=== PATIENT | female | born 1940 | race Caucasian/White ===

== ENCOUNTER → 2016-09-19 | Outpatient (CLI) | payer MEDICARE, OTHER ==
[~2016-09-19] MED LIST: ASPEC81 PO; CALCTAB5 PO; CHOL1CAP57; CLC100X PO; METO25TA3 PO; MULT-506 PO; OXYC1TAB3 PO; PSYL55.43 PO; VISION VITAMIN; WARF2TAB PO; [UNRECOGNIZED DRUG - OTHER] PO
[2016-09-19 16:10] LABS: URINE APPEARANCE CLEAR (CLEAR); URINE BILIRUBIN NEG (NEG); URINE COLOR YELLOW; URINE EPITHELIAL CELL AUTO 0-5 /lpf (0-5); URINE NITRITE NEG (NEG); URINE PH 7.5 (4.5-7.5); UROBILINOGEN NEG (NEG)
[2016-09-19 16:12] LABS: MANUAL MICROSCOPIC REQUIRED? NO; REVIEW REQ? NO
== END | disposition home or self-care (01) ==
LOC: C.LABSPEC 15:51
PROVIDERS: ATTEND Obstetrics & Gynecology
DX: R31.9 Hematuria, unspecified (principal)

== ENCOUNTER → 2016-10-24 | Outpatient (CLI) | payer MEDICARE, OTHER ==
--- NOTE | 2016-10-24 13:32 | MAMMOGRAPHY REPORT ---
BILATERAL DIGITAL SCREENING MAMMOGRAM WITH CAD: 10/24/2016 CLINICAL HISTORY: Routine screening. Patient has no complaints. TECHNIQUE: Bilateral CC and MLO views were obtained. Current study was also evaluated with a Comput er Aided Detection (CAD) system. COMPARISON: Comparison is made to exams dated: 10/21/2015 mammogram, 10/17/2013 mammogram, 10/20/2014 ma mmogram, 10/16/2012 mammogram, 10/10/2011 mammogram, and 10/04/2010 mammogram - [facility] enter. BREAST COMPOSITION: The tissue of both breasts is heterogeneously dense, which may obscure small ma sses. FINDINGS: There are moderate vascular calcifications and a few benign rim calcifications in the iwona sts. No suspicious mass, architectural distortion or cluster of suspicious microcalcifications is s een. IMPRESSION: ACR BI-RADS CATEGORY 1: NEGATIVE There is no mammographic evidence of malignancy. A 1 year screening mammogram is recommended. The p atient will receive written notification of the results. Approximately 10% of breast cancers are not detected with mammography. A negative mammographic repor t should not delay biopsy if a clinically suggestive mass is present. Temi Hernandez M.D. ay/:10/24/2016 12:43:46 Spanish Speaking Nanny: Georgiana PIPER(R)(M), [facility] letter sent: Normal 1/2 BI-RADS Code: ACR BI-RADS Category 1: Negative
== END | disposition home or self-care (01) ==
LOC: C.MAMM 10:08
PROVIDERS: ATTEND Family Medicine
DX: Z12.31 Encounter for screening mammogram for malignant neoplasm of breast (principal)

== ENCOUNTER → 2016-12-07 | Outpatient (CLI) | payer MEDICARE ==
--- NOTE | 2016-12-07 11:21 | DIAGNOSTIC IMAGING REPORT ---
CHEST 2 VIEWS ROUTINE CLINICAL HISTORY: R06.02 Shortness of [id number] dyspnea COMPARISON STUDY: 12/09/2013 FINDINGS: Moderate emphysematous change. Chronic fibrotic change pulmonary apices. Chronic plane posterior gastric angle. IMPRESSION: Chronic and emphysematous change. No acute process. Electronically signed by: Reji Santana M.D. 12/07/2016 11:20 AM Dictated Date/Time: 12/07/2016 11:19 AM
== END | disposition home or self-care (01) ==
LOC: C.RAD1850 10:54
PROVIDERS: ATTEND Internal Medicine Pulmonary Disease
DX: R06.02 Shortness of breath (principal)

== ENCOUNTER → 2017-02-05 | Outpatient (CLI) | payer MEDICARE ==
--- NOTE | 2017-02-03 15:02 | DIAGNOSTIC IMAGING REPORT ---
CERVICAL SPINE 2 VIEWS HISTORY: Pain CHRONIC NECK PAIN COMPARISON: None. FINDINGS: The cervical spine is visualized from C1 through the superior endplate of T1. There is no fracture. No subluxation. Moderate to rather significant degenerative disc change from C4 through T1. Moderate degenerative changes of the posterior and lateral elements. IMPRESSION: Moderate to rather significant degenerative change of the mid to lower cervical spine. No acute process. Electronically signed by: Reji Santana M.D. 02/03/2017 3:01 PM Dictated Date/Time: 02/03/2017 3:00 PM
== END | disposition home or self-care (01) ==
LOC: C.RDSM 16:23
PROVIDERS: ATTEND Orthopaedic Surgery
DX: M54.2 Cervicalgia (principal)

== ENCOUNTER → 2017-02-09 | Outpatient (CLI) | payer MEDICARE ==
--- NOTE | 2017-02-09 13:50 | DIAGNOSTIC IMAGING REPORT ---
MRI OF THE CERVICAL SPINE WITHOUT CONTRAST CLINICAL HISTORY: Cervicalgia. Neck pain and occipital neuralgia. COMPARISON: Cervical spine radiographs February 03, 2017. TECHNIQUE: Utilizing a 1.5 Lynnette magnet and dedicated coil, multiplanar, multiecho imaging of the cervical spine was performed without IV contrast. FINDINGS: There is slight anterolisthesis of C7 on T1 which is likely due to facet arthrosis. There is concavity with moderate loss of height of the inferior endplate of C6 which is chronic. Cervical cord signal and caliber are normal. There is no intracanalicular mass or fluid collection. There is increased T2 signal and diminished T1 signal within the C2 vertebral body and the dens. There is severe degenerative changes of the left C1-C2 articulation. These findings are likely degenerative. C2-C3: The central canal and neural foramen are patent. C3-C4: There is mild disc bulge. The central canal and neural foramen are patent. C4-C5: There is mild disc bulge. The central canal and neural foramen are patent. C5-C6: There is disc space narrowing with disc bulge. There is mild narrowing of the central canal. There is mild narrowing of the left neural foramen. C6-C7: There is disc bulge with a tiny central disc protrusion. There is minimal narrowing of the central canal. The neural foramen are patent. C7-T1: The central canal and neural foramen are patent. IMPRESSION: 1. Severe degenerative changes of the left C1-C2 articulation. Associated marrow signal abnormality within the C2 vertebral body and dens is likely related to this degenerative process. 2. Mild to moderate multilevel degenerative disc disease and facet arthrosis with mild multilevel central canal and neural foraminal stenosis. No significant central canal stenosis. 3. Moderate loss of height with concavity of the inferior plate of C6 which is chronic and could reflect a Schmorl's node or old compression deformity. Electronically signed by: Bakari Epps M.D. 02/09/2017 1:49 PM Dictated Date/Time: 02/09/2017 12:24 PM
== END | disposition home or self-care (01) ==
LOC: C.MRI 11:28
PROVIDERS: ATTEND Orthopaedic Surgery
DX: M54.2 Cervicalgia (principal); M47.812 Spondylosis without myelopathy or radiculopathy, cervical region; M54.81 Occipital neuralgia; R29.890 Loss of height

== ENCOUNTER → 2017-11-01 | Outpatient (CLI) | payer MEDICARE ==
--- NOTE | 2017-11-01 15:23 | MAMMOGRAPHY REPORT ---
BILATERAL DIGITAL SCREENING MAMMOGRAM TOMOSYNTHESIS WITH CAD: 11/01/2017 CLINICAL HISTORY: Routine screening. Patient has no complaints. TECHNIQUE: Breast tomosynthesis in addition to standard 2D mammography was performed. Current study was also evaluated with a Computer Aided Detection (CAD) system. COMPARISON: Comparison is made to exams dated: 10/24/2016 mammogram, 10/21/2015 mammogram, 10/20/2014 mamm ogram, 10/17/2013 mammogram, 10/16/2012 mammogram, and 10/10/2011 mammogram - [facility] er. BREAST COMPOSITION: The tissue of both breasts is heterogeneously dense, which may obscure small mas ses. FINDINGS: There are moderate vascular calcifications in the breasts. No suspicious mass, architectur al distortion or cluster of microcalcifications is seen. IMPRESSION: ACR BI-RADS CATEGORY 1: NEGATIVE There is no mammographic evidence of malignancy. A 1 year screening mammogram is recommended. The pa tient will receive written notification of the results. Approximately 10% of breast cancers are not detected with mammography. A negative mammographic report should not delay biopsy if a clinically suggestive mass is present. Temi Hernandez M.D. ay/:11/01/2017 11:02:35 Rigging Man: Jacqui PIPER(R)(M), [facility] letter sent: Normal 1/2 BI-RADS Code: ACR BI-RADS Category 1: Negative
== END | disposition home or self-care (01) ==
LOC: C.MAMM 10:02
PROVIDERS: ATTEND Family Medicine
DX: Z12.31 Encounter for screening mammogram for malignant neoplasm of breast (principal)

== ENCOUNTER 2021-03-25 09:57 | Inpatient (IN) ==
--- NOTE | 2021-03-25 10:40 | Emergency Department Note ---
Impression & Plan Atrial fibrillation with rapid ventricular response ED Provider Note NAME: Rashaun WEST AGE: 80 SEX: F : 1940 ARRIVES VIA: Walk-In INFORMANT: Patient, ED PROVIDER(S): Thuan Altamirano MD Chief Complaint: Palpitations, weakness HPI: Patient does present with the above complaints which have been chronic in nature but acutely worse over the last 1 week. The patient was recently taken off flecainide and told that she will need to follow-up with dynamo tender due to concern for chronic atrial fibrillation. The patient is anticoagulated on apixaban and does take metoprolol extended release 50 mg. Patient states she has been compliant with his medication. The patient does believe that her s ymptoms began when she was taken off of flecainide. This is at the behest of her lieutenant colonel Dr. Espino. Patient denies any fevers or chills. The patient has had some exertional dyspnea. No lower extremity swelling. The patient is vaccinated for Covid. Patient states she has had generalized weakness but no focal deficits. Patient denies any sensory deficits. Patient denies any cough. ROS: See HPI for pertinent positives and negatives. A total of 10 systems were reviewed and otherwise negative. Past medical history: See below Surgical history: See below Social history: See below Physical Exam: GENERAL: Wearing glasses and a mask. NAD, non-toxic. EYE EXAM: Normal conjunctiva. PERRL, no anisocoria and EOM's grossly intact w/o pain. NECK: Supple, no nuchal rigidity, no adenopathy, non-tender. No signs of meningismus. LUNGS: Clear to auscultation. Normal chest wall mechanics. HEART: Tachycardic, no MRG. ABDOMEN: Abdomen soft, non-tender, normo-active bowel sounds, no masses, no rebound or guarding. BACK: No CVA TTP. SKIN: No rashes and no bruising. UPPER EXTREMITIES: Upper extremities are grossly normal. LOWER EXTREMITIES: Grossly normal, no edema. NEURO EXAM: A&O x3, cranial nerves II-XII grossly intact, normal speech, moves all 4 extremities on command w/o issue. Differential diagnoses: Infection, dehydration, metabolic abnormality, hypo/hyperglycemia, electrolyte disturbance, anemia, hypoxia, cardiac sources, intracerebral event, toxicologic, neurologic, as well as other pathologies. Course: Patient was seen and evaluated the bedside. Full history physical exam was performed. EKG interpreted by me A. fib, rate 105, wide QRS, left bundle branch block pattern, PVCs noted. Imaging Studies: See below Cardiac monitoring: An order was placed for continuous cardiac monitoring. The monitor shows a rate of 115 with tachycardic rhythm. MDM: Patient did have blood work completed along with an EKG. The patient was given IV fluids. The patient has a normal white count H&H and platelet count. Kidney function is unremarkable albeit mild prerenal azotemia. The patient did receive IV fluids. Troponin undetectable. TSH normal along with electrolytes. The patient does show A. fib with RVR. The patient was given IV metoprolol. Chest x-ray did show mild cardiac enlargement with otherwise no acute process. Patient did receive the IV metoprolol and had mild improvement in symptoms but given the patient's requiring 3 IV doses I did speak to the on-call lieutenant colonel Dr. Espino and was amenable for inpatient treatment and will discuss her with electrophysiology. I did speak the on-call hospitalist Dr. Santos the patient was admitted to the medicine service. Critical Care: I have personally spent 55 minutes of critical care time in direct management of this patient. This includes bedside care, interpretation of diagnostic studies, and testing, discussion with consultants, patient, and family members, and other require inpatient management activities. This 55 minutes is in excess of all separately billable procedures. Past Med/Surg History Medical History Abnormal electrocardiogram Abnormal nuclear stress test Atrial fibrillation Bleeding disorder Slight vaginal leakage Decreased exercise tolerance Degenerative disc disease Diastasis of muscle Encounter for routine gynecological examination Femoral hernia Hematuria History of cardioversion has had 2 cardioversion 01/2019 Hypothyroidism Irregular heart beat Kyphoscoliosis LBBB (left bundle branch block) Macular degeneration Mitral valve prolapse Osteoarthritis Osteoporosis Pectus excavatum Raynauds phenomenon Scoliosis Sensorineural hearing loss (SNHL) of right ear with restricted hearing of left ear Shortness of breath Stress incontinence in female SVT (supraventricular tachycardia) Tinnitus, bilateral Unknown whether patient has any health problems Urinary symptom or sign Varicose veins of both lower extremities Surgical History H/O bilateral inguinal hernia repair H/O bladder repair surgery Anterior and posterior colporrhaphy, uterine suspension w/ mesh H/O umbilical hernia repair H/O varicose vein ligation History of cataract surgery BILATERAL History of colonoscopy History of femoral hernia repair History of Fanta fundoplication History of total hip arthroplasty BILATERAL History of total knee replacement LEFT 07/04/13 - MAC #3, ETT #7.0, HiLo Oral, Grade 1 View, Atraumatic DL X 1 Family History Mother Emphysema of lung Osteoporosis Heart disease Father Hearing loss Heart disease Sister Lung cancer Daughter Breast cancer Denies family history of Ovarian cancer No family history of adverse response to anesthesia No family history of bleeding disorder Allergies Colorectal cancer Cancer Hypertension Uterine cancer Stroke Asthma Social History Smoking Status: Never smoker Second Hand Exposure: No; Hx Alcohol Use: Yes Alcohol Intake Frequency Comment: couple times a year Hx Substance Use: No Preferred Language: Bulgarian Communication Ability: Effective Concrete Paver Required: No Beliefs That Will Affect Care: None marital status: Current Living Situation: Spouse Feels Safe at Home: Yes Assistive Devices: Glasses Allergies Allergies Allergy/AdvReac Type Severity Reaction Status Date / Time sesame seed Allergy Severe Anaphylaxis Verified 03/25/21 12:03 No Known Drug Allergies Allergy . Verified 03/25/21 12:03 Home Meds Home Medications Medication Instructions Recorded Confirmed Calcium 600 + D(3) 1 cap PO BID 01/28/19 03/25/21 PreserVision AREDS-2 1 tab PO QAM 01/28/19 03/25/21 levothyroxine [Levo-T] 100 mcg PO QAM 01/28/19 03/25/21 multivitamin 1 tab PO QAM 01/28/19 03/25/21 polyethylene glycol 3350 [Miralax] 17 g PO Q2D 01/28/19 03/25/21 diclofenac sodium 1 % topical gel 1 ea TOPICAL DAILY PRN gm 06/17/19 03/25/21 acetaminophen 500 mg tablet 1,000 mg PO BID tab 02/17/20 03/25/21 omega tumeric 1 cap PO QAM 07/23/20 03/25/21 Previous Rx's Medication Instructions Recorded metoprolol succinate 50 mg 50 mg PO QPM #0 tab 10/25/19 tablet,extended release 24 hr apixaban 5 mg tablet 5 mg PO BID #180 tab 01/07/21 Results & Data (ED) Vital Signs Vital Signs - 24 hr 03/25/21 10:00 03/25/21 10:37 03/25/21 11:00 Temperature 36.8 C Temperature Source Oral Pulse Rate 124 H 106 H 108 H Pulse Rate from SpO2 Sensor 86 Respiratory Rate 20 22 18 Respiratory Effort / Characteristics Non-Labored Respiratory Depth Normal Blood Pressure 140/107 H 137/83 107/77 Blood Pressure Mean 118 101 87 Pulse Oximetry 98 95 Oxygen Delivery Method Room Air Sepsis Recent Fever Within 48 Hours No Sepsis New/Unexplained Change in Mental Status N/A Sepsis Action Taken by Nursing No Action Required 03/25/21 11:17 03/25/21 11:30 03/25/21 11:55 Temperature Temperature Source Pulse Rate 94 H 84 Pulse Rate from SpO2 Sensor 86 110 H Respiratory Rate 19 15 Respiratory Effort / Characteristics Respiratory Depth Blood Pressure 119/80 136/82 Blood Pressure Mean 93 100 Pulse Oximetry 95 96 91 Oxygen Delivery Method Room Air Sepsis Recent Fever Within 48 Hours Sepsis New/Unexplained Change in Mental Status Sepsis Action Taken by Nursing 03/25/21 12:00 03/25/21 12:16 03/25/21 12:30 Temperature Temperature Source Pulse Rate 139 H 113 H 86 Pulse Rate from SpO2 Sensor 114 H 107 H 91 H Respiratory Rate 23 14 15 Respiratory Effort / Characteristics Respiratory Depth Blood Pressure 104/77 113/69 102/78 Blood Pressure Mean 86 83 86 Pulse Oximetry 97 94 97 Oxygen Delivery Method Sepsis Recent Fever Within 48 Hours Sepsis New/Unexplained Change in Mental Status Sepsis Action Taken by Nursing 03/25/21 12:46 03/25/21 12:51 03/25/21 13:00 Temperature Temperature Source Pulse Rate 93 H 104 H 91 H Pulse Rate from SpO2 Sensor 93 H 92 H Respiratory Rate 14 18 Respiratory Effort / Characteristics Respiratory Depth Blood Pressure 142/89 H 142/89 H 130/79 Blood Pressure Mean 106 96 Pulse Oximetry 96 96 Oxygen Delivery Method Sepsis Recent Fever Within 48 Hours Sepsis New/Unexplained Change in Mental Status Sepsis Action Taken by Nursing 03/25/21 13:15 03/25/21 13:30 03/25/21 14:00 Temperature Temperature Source Pulse Rate 113 H 120 H 94 H Pulse Rate from SpO2 Sensor 109 H 82 Respiratory Rate 18 20 29 H Respiratory Effort / Characteristics Respiratory Depth Blood Pressure 126/95 135/94 121/96 Blood Pressure Mean 105 107 104 Pulse Oximetry 92 97 Oxygen Delivery Method Sepsis Recent Fever Within 48 Hours Sepsis New/Unexplained Change in Mental Status Sepsis Action Taken by Custodial Medications Current Medication List: was personally reviewed by me Laboratory Data Attestation: I reviewed the patient's lab results. Result diagrams: 03/25/21 11:10 03/25/21 11:10 Lab Results 03/25/21 03/25/21 03/25/21 Range/Units 11:10 11:10 11:10 WBC 5.06 (4.8-10.8) K/uL RBC 4.71 (4.2-5.4) M/uL Hgb 14.8 (12.0-16.0) g/dL Hct 44.4 (37-47) % MCV 94.3 (80-100) fL MCH 31.4 (25-34) pg MCHC 33.3 (32-36) g/dL RDW Std Deviation 47.6 H (36.4-46.3) fL RDW Coeff of Amy 13.7 (11.5-14.5) % Plt Count 225 (130-400) K/uL MPV 9.5 (7.4-10.4) fL Immature Gran % (Auto) 0.2 % Neut % (Auto) 63.6 % Lymph % (Auto) 24.7 % Tift % (Auto) 9.5 % Eos % (Auto) 1.8 % Baso % (Auto) 0.2 % Neut # (Auto) 3.22 (1.4-6.5) K/uL Lymph # (Auto) 1.25 (1.2-3.4) K/uL Tift # (Auto) 0.48 (0.11-0.59) K/uL Eos # (Auto) 0.09 (0-0.5) K/uL Baso # (Auto) 0.01 (0-0.2) K/uL Immature Gran # (Auto) 0.01 (0.00-0.02) K/uL PT 10.6 (9.0-12.0) Seconds INR 1.0 (0.9-1.1) APTT 28.7 (21.0-31.0) Seconds PTT Ratio 1.1 Sodium 137 (136-145) mmol/L Potassium 4.5 (3.5-5.1) mmol/L Chloride 106 (98-107) mmol/L Carbon Dioxide 26 (21-32) mmol/L Anion Gap 5.0 (3-11) BUN 18 (7-18) mg/dl Creatinine 0.77 (0.6-1.2) mg/dl Est Cr Clr Drug Dosing 53.3 ml/min Est GFR ( Amer) 85.1 ml/min Est GFR (Non-Af Amer) 73.4 ml/min BUN/Creatinine Ratio 22.9 H (10-20) Glucose 84 (70-99) mg/dl Calcium 8.9 (8.5-10.1) mg/dl Phosphorus 3.5 (2.5-4.9) mg/dl Magnesium 2.4 (1.8-2.4) mg/dl Total Bilirubin 0.5 (0.2-1) mg/dl AST 30 (15-37) U/L ALT 45 (12-78) U/L Alkaline Phosphatase 75 (45-117) U/L Troponin I < 0.015 (0-0.045) ng/ml Total Protein 7.1 (6.4-8.2) gm/dl Albumin 3.6 (3.4-5.0) gm/dl Globulin 3.5 (2.5-4.0) gm/dl Albumin/Globulin Ratio 1.0 (0.9-2) TSH 2.640 (0.300-4.500) uIu/ml COVID-19 Eval Order 03/25/21 Range/Units 14:10 WBC (4.8-10.8) K/uL RBC (4.2-5.4) M/uL Hgb (12.0-16.0) g/dL Hct (37-47) % MCV (80-100) fL MCH (25-34) pg MCHC (32-36) g/dL RDW Std Deviation (36.4-46.3) fL RDW Coeff of Amy (11.5-14.5) % Plt Count (130-400) K/uL MPV (7.4-10.4) fL Immature Gran % (Auto) % Neut % (Auto) % Lymph % (Auto) % Tift % (Auto) % Eos % (Auto) % Baso % (Auto) % Neut # (Auto) (1.4-6.5) K/uL Lymph # (Auto) (1.2-3.4) K/uL Tift # (Auto) (0.11-0.59) K/uL Eos # (Auto) (0-0.5) K/uL Baso # (Auto) (0-0.2) K/uL Immature Gran # (Auto) (0.00-0.02) K/uL PT (9.0-12.0) Seconds INR (0.9-1.1) APTT (21.0-31.0) Seconds PTT Ratio Sodium (136-145) mmol/L Potassium (3.5-5.1) mmol/L Chloride (98-107) mmol/L Carbon Dioxide (21-32) mmol/L Anion Gap (3-11) BUN (7-18) mg/dl Creatinine (0.6-1.2) mg/dl Est Cr Clr Drug Dosing ml/min Est GFR ( Amer) ml/min Est GFR (Non-Af Amer) ml/min BUN/Creatinine Ratio (10-20) Glucose (70-99) mg/dl Calcium (8.5-10.1) mg/dl Phosphorus (2.5-4.9) mg/dl Magnesium (1.8-2.4) mg/dl Total Bilirubin (0.2-1) mg/dl AST (15-37) U/L ALT (12-78) U/L Alkaline Phosphatase (45-117) U/L Troponin I (0-0.045) ng/ml Total Protein (6.4-8.2) gm/dl Albumin (3.4-5.0) gm/dl Globulin (2.5-4.0) gm/dl Albumin/Globulin Ratio (0.9-2) TSH (0.300-4.500) uIu/ml COVID-19 Eval Order Covid19 at [facility] Administered Medications Diltiazem HCl (Diltiazem Hcl 30 Mg Tab) 30 mg PO TID JOSE JUAN Stop: 04/24/21 14:29 Last Admin: 03/25/21 15:38 Dose: 30 mg Documented by: [id number] Metoprolol Tartrate (Metoprolol Tartrate 1 Mg/Ml Vial) 5 mg IV Q5M PRN PRN Reason: Tachycardia Stop: 04/24/21 12:20 Last Admin: 03/25/21 13:40 Dose: 5 mg Documented by: [id number] Admin: 03/25/21 12:51 Dose: 5 mg Documented by: [id number] Discontinued Medications Sodium Chloride (Nss) 500 mls @ 999 mls/hr IV .Q31M JOSE JUAN Stop: 03/25/21 11:30 Last Infusion: 03/25/21 12:18 Dose: 0 mls/hr Documented by: [id number] Admin: 03/25/21 11:37 Dose: 999 mls/hr Documented by: [id number] Imaging Data Radiologist's Impression: Chest X-Ray 03/25/21 10:04 XR chest 1V portable HISTORY: 80 years-old Female Chest Pain acute atypical chest pain COMPARISON: 06/30/2020 TECHNIQUE: Portable upright AP view of the chest FINDINGS: Cardiac silhouette is enlarged. No pneumothorax, pleural effusion, airspace consolidation or overt pulmonary edema. Right cardiophrenic angle opacities suggest probable atelectasis/scarring. Degenerative changes of the shoulders and spine with sigmoidal thoracolumbar scoliosis. IMPRESSION: Cardiomegaly without acute process. ACT 112: Negative or not required by law. The above report was generated using voice recognition software. It may contain grammatical, syntax or spelling errors. Electronically signed by: Frederic Walker M.D. 03/25/2021 11:05 AM Discharge Plan Visit Data Chief Complaint: Arrhythmia/Palpitations Stated Complaint: HEART PALPITATIONS,WEAKNESS ED Provider: Thuan Altamirano Discharge Problem: Atrial fibrillation with rapid ventricular response Forms Stand Alone Forms: [facility] [employer] Prescriptions Prescriptions: No Action Eliquis 5 mg tablet 5 mg PO BID Qty: 180 RF: 3 omega tumeric capsule 1 cap PO QAM RF: 0 diclofenac sodium 1 % gel 1 ea topical DAILY PRN (Reason: Pain) RF: 0 metoprolol succinate 50 mg tablet extended release 24 hr 50 mg PO QPM Qty: 0 RF: 0 multivitamin Tablet 1 tab PO QAM RF: 0 levothyroxine [Levo-T] 100 mcg Tablet 100 mcg PO QAM RF: 0 polyethylene glycol 3350 [Miralax] 17 gram/dose Powder 17 g PO Q2D RF: 0 Calcium 600 + D(3) 600 mg calcium- 200 unit Capsule 1 cap PO BID RF: 0 PreserVision AREDS-2 [id number] up-ucfs-[id number]-mg Capsule 1 tab PO QAM RF: 0 acetaminophen [Tylenol Extra Strength] 500 mg tablet 1,000 mg PO BID RF: 0
[2021-03-25] MEDS ORDERED: SODIUM CHLORIDE 0.9% 500 ML IV SCH (11:00)
--- NOTE | 2021-03-25 11:06 | XRay Report ---
XR chest 1V portable HISTORY: 80 years-old Female Chest Pain acute atypical chest pain COMPARISON: 06/30/2020 TECHNIQUE: Portable upright AP view of the chest FINDINGS: Cardiac silhouette is enlarged. No pneumothorax, pleural effusion, airspace consolidation or overt pu lmonary edema. Right cardiophrenic angle opacities suggest probable atelectasis/scarring. Degenerativ e changes of the shoulders and spine with sigmoidal thoracolumbar scoliosis. IMPRESSION: Cardiomegaly without acute process. ACT 112: Negative or not required by law. The above report was generated using voice recognition software. It may contain grammatical, syntax o r spelling errors. Electronically signed by: Frederic Walker M.D. 03/25/2021 11:05 AM
[2021-03-25 11:24] LABS: Basophils # (auto) 0.01 K/uL (0-0.2); Basophils % (auto) 0.2 %; Eosinophils # (auto) 0.09 K/uL (0-0.5); Eosinophils % (auto) 1.8 %; Hematocrit (blood only) 44.4 % (37-47); Hemoglobin 14.8 g/dL (12.0-16.0); Immature Granulocytes # (auto) 0.01 K/uL (0.00-0.02); Immature Granulocytes % (auto) 0.2 %; Lymphocytes # (auto) 1.25 K/uL (1.2-3.4); Lymphocytes % (auto) 24.7 %; Mean Corpuscular Hemoglobin 31.4 pg (25-34); Mean Corpuscular Hgb Conc 33.3 g/dL (32-36); Mean Corpuscular Volume 94.3 fL (80-100); Mean Platelet Volume 9.5 fL (7.4-10.4); Monocytes # (auto) 0.48 K/uL (0.11-0.59); Monocytes % (auto) 9.5 %; Neutrophils # (auto) 3.22 K/uL (1.4-6.5); Neutrophils % (auto) 63.6 %; Platelet Count 225 K/uL (130-400); RDW Coefficient of Variation 13.7 % (11.5-14.5); RDW Standard Deviation 47.6 fL (36.4-46.3); Red Blood Count 4.71 M/uL (4.2-5.4); White Blood Count 5.06 K/uL (4.8-10.8)
[2021-03-25 11:37] LABS: Partial Thromboplastin Ratio 1.1; Partial Thromboplastin Time 28.7 Seconds (21.0-31.0); Prothrombin Time 10.6 Seconds (9.0-12.0)
[2021-03-25 11:41] LABS: Alanine Aminotransferase 45 U/L (12-78); Albumin Level 3.6 gm/dl (3.4-5.0); Aspartate Aminotransferase 30 U/L (15-37); BUN Creatinine Ratio 22.9 (10-20); Blood Urea Nitrogen 18 mg/dl (7-18); Calcium 8.9 mg/dl (8.5-10.1); Carbon Dioxide 26 mmol/L (21-32); Chloride 106 mmol/L (98-107); Creatinine Clr Calc Pharmacy 53.3 ml/min; Est GFR (African American) 85.1 ml/min; Est GFR (Non-African American) 73.4 ml/min; Glucose 84 mg/dl (70-99); Magnesium 2.4 mg/dl (1.8-2.4); Potassium 4.5 mmol/L (3.5-5.1); Sodium 137 mmol/L (136-145)
[2021-03-25 11:52] LABS: Alkaline Phosphatase 75 U/L (45-117); Bilirubin,Total 0.5 mg/dl (0.2-1); Globulin 3.5 gm/dl (2.5-4.0); Phosphorus 3.5 mg/dl (2.5-4.9); Total Protein 7.1 gm/dl (6.4-8.2); Troponin I < 0.015 ng/ml (0-0.045)
[2021-03-25] MEDS: METOPROLOL TARTRATE 1 MG/ML VIAL IV PRN ×2 (12:51→13:40)
[2021-03-25] MEDS ORDERED: dilTIAZem HCL 30 MG TAB PO SCH (14:30)
--- NOTE | 2021-03-25 15:06 | History & Physical Report ---
Date of Service March 25, 2021 Assessment & Plan (1) Atrial flutter: 80 y/o G Hx hypothyroidism, paroxysmal atrial flutter. The pt has been cardioverted multiple times and was recently taking flecainide. She presents with palpitations. Rapid flutter was confirmed on arrival to the ER. Her rate responded partially to IV metoprolol. She denies CP or SOB. She was evaluated in the ER by her ore roaster. Labs are unremarkable. 1) Atrial flutter - The pt is placed on PO Cardizem and BID metoprolol per her ore roaster. She may be placed on amio if there is no short-term improvement. She is anticoagulated with Eliquis. 2) Hypothyroidism - cont Synthroid Full code - Eliquis prophylaxis Total time for this admit including review of labs, meds, imaging, records - discussion with pt and ER attending - 35 min (2) Hypothyroidism: Admission and Anticipated Discharge Date Admission Date: 03/25/21 Anticipated date of discharge: 03/27/21 History of Present Illness Chief Complaint: Palpitations Primary Care Provider: Eran Jordan MD 80 y/o G Hx hypothyroidism, paroxysmal atrial flutter. The pt has been cardioverted multiple times and was recently taking flecainide. She presents with palpitations. Rapid flutter was confirmed on arrival to the ER. Her rate responded partially to IV metoprolol. She denies CP or SOB. She was evaluated in the ER by her ore roaster. Labs are unremarkable. PMH: 1) Paroxysmal atrial flutter 2) Hypothyroidism 3) Osteoarthritis 4) Kyphoscoliosis Surgical: 1) BL TOMMY 2) L TKA 3) Hernia surgery x 5 4) Cataracts Social: Does not drink or smoke Family: Father - COPD Mother - CAD Allergies Allergy/AdvReac Type Severity Reaction Status Date / Time sesame seed Allergy Severe Anaphylaxis Verified 03/25/21 12:03 No Known Drug Allergies Allergy . Verified 03/25/21 12:03 Home Medications Medication Instructions Recorded Confirmed Type Calcium 600 + D(3) 1 cap PO BID 01/28/19 03/25/21 History PreserVision AREDS-2 1 tab PO QAM 01/28/19 03/25/21 History levothyroxine [Levo-T] 100 mcg PO QAM 01/28/19 03/25/21 History multivitamin 1 tab PO QAM 01/28/19 03/25/21 History polyethylene glycol 3350 [Miralax] 17 g PO Q2D 01/28/19 03/25/21 History diclofenac sodium 1 % topical gel 1 ea TOPICAL DAILY PRN gm 06/17/19 03/25/21 History metoprolol succinate 50 mg 50 mg PO QPM #0 tab 10/25/19 03/25/21 Rx tablet,extended release 24 hr acetaminophen 500 mg tablet 1,000 mg PO BID tab 02/17/20 03/25/21 History omega tumeric 1 cap PO QAM 07/23/20 03/25/21 History apixaban 5 mg tablet 5 mg PO BID #180 tab 01/07/21 03/25/21 Rx Past Med/Surg History Medical History Abnormal electrocardiogram Abnormal nuclear stress test Atrial fibrillation Bleeding disorder Slight vaginal leakage Decreased exercise tolerance Degenerative disc disease Diastasis of muscle Encounter for routine gynecological examination Femoral hernia Hematuria History of cardioversion has had 2 cardioversion 01/2019 Hypothyroidism Irregular heart beat Kyphoscoliosis LBBB (left bundle branch block) Macular degeneration Mitral valve prolapse Osteoarthritis Osteoporosis Pectus excavatum Raynauds phenomenon Scoliosis Sensorineural hearing loss (SNHL) of right ear with restricted hearing of left ear Shortness of breath Stress incontinence in female SVT (supraventricular tachycardia) Tinnitus, bilateral Unknown whether patient has any health problems Urinary symptom or sign Varicose veins of both lower extremities Surgical History H/O bilateral inguinal hernia repair H/O bladder repair surgery Anterior and posterior colporrhaphy, uterine suspension w/ mesh H/O umbilical hernia repair H/O varicose vein ligation History of cataract surgery BILATERAL History of colonoscopy History of femoral hernia repair History of Fanta fundoplication History of total hip arthroplasty BILATERAL History of total knee replacement LEFT 07/04/13 - MAC #3, ETT #7.0, HiLo Oral, Grade 1 View, Atraumatic DL X 1 Family History Mother Emphysema of lung Osteoporosis Heart disease Father Hearing loss Heart disease Sister Lung cancer Daughter Breast cancer Denies family history of Ovarian cancer No family history of adverse response to anesthesia No family history of bleeding disorder Allergies Colorectal cancer Cancer Hypertension Uterine cancer Stroke Asthma Social History Smoking Status: Never smoker Second Hand Exposure: No; Hx Alcohol Use: Yes Alcohol Intake Frequency Comment: couple times a year Hx Substance Use: No Preferred Language: Citizen Of [place] Communication Ability: Effective Manager [employer] Required: No Beliefs That Will Affect Care: None marital status: Current Living Situation: Spouse Feels Safe at Home: Yes Assistive Devices: Glasses Review of Systems Review of Systems: Gen: Denies fevers, night sweats, rigors, fatigue, malaise, weight loss/gain ENT: Denies congestion, throat pain, hearing loss Eyes: Denies acute visual changes CV: + Palpitations Pulmonary: Denies SOB, cough, wheezing GI: Denies N/V, diarrhea, constipation Neuro: Denies acute or unilateral weakness, acute gait impairment, headache or acute visual changes Musculoskeletal: Denies joint pain, inflammation Endocrine: Denies polydipsia, polyuria Skin: Denies acute rashes or ulcers Physical Exam Physical Exam: General: AAO x 3, no distress ENT: No erythema or exudates, no thrush Eyes: DEVONTE, EOMI Head and neck: Normocephalic, atraumatic, No JVD, neck is supple. Chest/heart: Nontender, S1,2, faunt, tachy - no murmurs Lungs: CTAB, no wheezing or crackles Abdomen: Nontender, nondistended, BS+ Neuro: AAO x 3, speech is clear, no unilateral weakness or loss of sensation, coordination intact Musculoskeletal: Pronounced kyphosis Skin: No acute rashes or ulcers Extremities: No clubbing, cyanosis, edema Results & Data Results & Data ([facility]) Vital Signs (Past 12 Hours) Vital Signs Temp Pulse Resp BP Pulse Ox 03/25/21 14:00 94 H 29 H 121/96 97 03/25/21 13:30 120 H 20 135/94 03/25/21 13:15 113 H 18 126/95 92 03/25/21 13:00 91 H 18 130/79 96 03/25/21 12:51 104 H 142/89 H 03/25/21 12:46 93 H 14 142/89 H 96 03/25/21 12:30 86 15 102/78 97 03/25/21 12:16 113 H 14 113/69 94 03/25/21 12:00 139 H 23 104/77 97 03/25/21 11:55 84 15 136/82 91 03/25/21 11:30 94 H 19 119/80 96 03/25/21 11:17 95 03/25/21 11:00 108 H 18 107/77 03/25/21 10:37 106 H 22 137/83 95 03/25/21 10:00 98.2 F 124 H 20 140/107 H 98 Code Status & VTE Plan VTE Prophylaxis Plan VTE Prophylaxis will be ordered: Yes PG Care Time/CCT Total # of Minutes Spent Total Time Spent with Patient: Total time spent is greater than 50% in co ordination of care (as documented) at patient's floor/unit and/or counseling patient: Coding Level of Care Code 74257 Initial Inpt Care Lvl 3 Diagnoses Atrial flutter I48.92 Hypothyroidism E03.9
--- NOTE | 2021-03-25 19:11 | Cardiology Consultation ---
Date of Consultation March 25, 2021 Assessment & Plan (1) Atrial fibrillation with rapid ventricular response: (2) Atrial flutter: (3) Fatigue: (4) Dyspnea on exertion: (5) Mitral regurgitation: ASSESSMENT/PLAN: 1. AFib with RVR: Has had issues with paroxysmal atrial fibrillation in the past and has undergone cardioversion x3. She appears to be in atrial fibrillation today while in atrial flutter on 03/15/2021. She has had recurrent arrhythmia despite flecainide therapy, which was therefore discontinued on 03/15/2021. In the emergency department, it was recommended that diltiazem be initiated to attempt rate control strategy. Since then, previous records have been reviewed and rate control strategy was not successful in the past on higher doses of metoprolol succinate and diltiazem. Therefore, will replace diltiazem with amiodarone 400 mg twice daily. She has had bradycardia in sinus rhythm in the past, and therefore metoprolol may need to be discontinued at some point. She states that she has not missed any doses of anticoagulation therapy. Could consider cardioversion after amiodarone load if she does not convert with medication alone. 2. Atrial flutter: Plan as above. 3. Mitral regurgitation: Has been non severe. Being followed as an outpatient. 4. Dyspnea with exertion: Chronic issue. She appears euvolemic. This symptom has not changed even with amish of sinus rhythm in the past as noted in prior cardiology visits. Likely due to documented pulmonary issues with kyphoscoliosis and pectus, limiting chest cage expansion. Certainly elevated heart rates could contribute to dyspnea. 5. Fatigue: Chronic issue. She did not report improvement in this symptom despite amish of sinus rhythm in the past. 6. Disposition: Cardiology will continue to follow. Patient care was discussed with Dr. Santos and Dr. Altamirano. Thank you for allowing me to participate in the care of your patient. Please call for any other questions or concerns. Sincerely, Elvin Espino M.D. History of Present Illness Reason for Consultation: Atrial fibrillation Requesting Physician: Dr. Altamirano Attending Physician: Dr. Santos History of Present Illness Mrs. Clark is a pleasant 80-year-old female with a history significant for paro xysmal atrial fibrillation s/p cardioversion, , atrial flutter anticoagulation, paroxysmal SVT, LBBB, and PACs. She also has emphysema. She has had the following studies/procedures: 1. Nuclear stress 12/15/2011: Negative for ischemia. Fixed small apical defect likely attenuation artifact given normal wall motion. EF 58%. Normal wall motion. 2. Echo 12/10/2013: Normal biventricular systolic function. Trace AI. Trace MR. 3. Holter 12/10/2013: Sinus rhythm. Rare PVCs. Frequent PACs. Three brief runs of asymptomatic SVT, no more than 6 beats in length. 4. Holter 11/02/2015: Sinus rhythm with LBBB and first-degree AV block. Average heart rate 69, ranging 47 to 97. Frequent PACs. Paroxysmal SVT up to 8 beats. Frequent PVCs. Occasional ventricular triplets. Symptoms correlated w ith PVCs. 5. Echo 11/02/2015: Normal LV size, systolic function, wall motion. EF 60-65%. Type 1 diastolic dysfunction. Sclerotic aortic valve. Mitral leaflets appeared thickened with diastolic doming and visually restricted opening but no significant stenosis. Mild, eccentric MR. RVSP 25. 6. Nuclear stress 11/10/2015: Small mild defect involving mid to distal inferoseptal and inferior mejia which could represent ischemia versus artifact due to significant gut artifact. Normal wall motion. EF 73%. 7. PFTs 03/09/2016: Mild obstruction with air trapping and reduced DLCO, consistent with emphysema. 8. Echo 01/22/19: Normal LV size with low-normal systolic function. EF 50-55%. No regional wall motion abnormalities. Septal motion consistent with bundle- branch block. Mild LVH. Moderate left atrial dilation. Severe right atrial dilation. Sclerotic aortic valve. Mild MR. Moderate TR. RVSP 27. 9. DC CV 01/31/2019: Elective for atrial fibrillation. Successfully converted to sinus rhythm. 10. Event monitor May 2019 [place] [facility]: Paroxysmal atrial fibrillation with rapid ventricular response. 11. DC CV 10/18/2019: Elective for AFib. Converted to sinus rhythm. 12. DC CV 02/18/2020: Elective for AFib. Converted to sinus rhythm while on flecainide 100 mg twice daily. 13. Echo 02/21/2020: Normal LV size with low-normal systolic function. EF 50- 55%. Septal motion consistent with bundle-branch block. Mildly dilated RV with normal systolic function. Severe right atrial dilation. Sclerotic aortic valve. Thickened mitral valve with mild MS. Prolapse of posterior mitral valve leaflet with mild to moderate MR. Moderate TR. RVSP 31. 14. Nuclear stress 03/18/2020: Negative for ischemia or infarct. EF 77%. 15. PFT's 09/01/2020: No obstruction. Increased lung volume with air trapping. Normal DLCO. She presented to the emergency department today for palpitations and weakness. According to records, she informed emergency department physician that her symptoms began when flecainide was discontinued. She was last seen in the cardiology office on 03/15/2021 and was noted to be in what appeared to be atrial flutter at that time. She had undergone cardioversion for AFib on 3 separate occasions, the most recent being February of 2020 while on flecainide. Because she was once again in atrial arrhythmia, flecainide was discontinued. She had continued to have chronic and stable dyspnea with exertion and fatigue, which was also expressed at the time of her appointment. These particular symptoms have not improved even while in sinus rhythm however palpitations have and she is expressing more palpitations recently. She was agreeable to follow- up with electrophysiology as an outpatient. She states that she was contacted by the office with appointment dates/times, but she did not schedule the appointment as of yet. She states that she has been having palpitations, shortness of breath, weakness, fatigue, back pain, chest pain, headache, and lightheadedness. She believes that her symptoms have worsened ever since flecainide was discontinued. The chest pain is left lateral but also left-sided and constant. Symptoms are noticeable when at rest, and not exertional. She denies melena, hematochezia, hematuria and states that she has not missed any of her anticoagulation therapy. When asked specific questions about some of her symptoms, she could not recall the details at times. Her agrees that she has short-term memory issues. He recalls that she did feel better after cardioversion in the past, although she has expressed in the office that the symptoms have been constant despite cardioversion and amish of sinus rhythm. It is documented on 02/27/2020 while in sinus rhythm that her dyspnea with exertion and exercise tolerance had not improved although palpitations did following cardioversion and while in sinus rhythm. She also had attempted rate control strategy in the past, but was unsuccessful while on metoprolol succinate and diltiazem. Review of systems: As above. Review of systems otherwise negative/unremarkable. Family history: No known premature CAD. Social history: Denies tobacco, alcohol, or drug abuse. She is retired from the telephone service. She has 5 children. She lives with her . Her hu julio c was sitting at the bedside in the emergency department during our visit. Allergies Allergy/AdvReac Type Severity Reaction Status Date / Time sesame seed Allergy Severe Anaphylaxis Verified 03/25/21 12:03 No Known Drug Allergies Allergy . Verified 03/25/21 12:03 Home Medications Medication Instructions Recorded Confirmed Type Calcium 600 + D(3) 1 cap PO BID 01/28/19 03/25/21 History PreserVision AREDS-2 1 tab PO QAM 01/28/19 03/25/21 History levothyroxine [Levo-T] 100 mcg PO QAM 01/28/19 03/25/21 History multivitamin 1 tab PO QAM 01/28/19 03/25/21 History polyethylene glycol 3350 [Miralax] 17 g PO Q2D 01/28/19 03/25/21 History diclofenac sodium 1 % topical gel 1 ea TOPICAL DAILY PRN gm 06/17/19 03/25/21 History metoprolol succinate 50 mg 50 mg PO QPM #0 tab 10/25/19 03/25/21 Rx tablet,extended release 24 hr acetaminophen 500 mg tablet 1,000 mg PO BID tab 02/17/20 03/25/21 History omega tumeric 1 cap PO QAM 07/23/20 03/25/21 History apixaban 5 mg tablet 5 mg PO BID #180 tab 01/07/21 03/25/21 Rx Patient History Medical History Abnormal electrocardiogram Abnormal nuclear stress test Atrial fibrillation Bleeding disorder Slight vaginal leakage Decreased exercise tolerance Degenerative disc disease Diastasis of muscle Encounter for routine gynecological examination Femoral hernia Hematuria History of cardioversion has had 2 cardioversion 01/2019 Hypothyroidism Irregular heart beat Kyphoscoliosis LBBB (left bundle branch block) Macular degeneration Mitral valve prolapse Osteoarthritis Osteoporosis Pectus excavatum Raynauds phenomenon Scoliosis Sensorineural hearing loss (SNHL) of right ear with restricted hearing of left ear Shortness of breath Stress incontinence in female SVT (supraventricular tachycardia) Tinnitus, bilateral Unknown whether patient has any health problems Urinary symptom or sign Varicose veins of both lower extremities Surgical History H/O bilateral inguinal hernia repair H/O bladder repair surgery Anterior and posterior colporrhaphy, uterine suspension w/ mesh H/O umbilical hernia repair H/O varicose vein ligation History of cataract surgery BILATERAL History of colonoscopy History of femoral hernia repair History of Fanta fundoplication History of total hip arthroplasty BILATERAL History of total knee replacement LEFT 07/04/13 - MAC #3, ETT #7.0, HiLo Oral, Grade 1 View, Atraumatic DL X 1 Family History Mother Emphysema of lung Osteoporosis Heart disease Father Hearing loss Heart disease Sister Lung cancer Daughter Breast cancer Denies family history of Ovarian cancer No family history of adverse response to anesthesia No family history of bleeding disorder Allergies Colorectal cancer Cancer Hypertension Uterine cancer Stroke Asthma Social History Smoking Status: Never smoker Second Hand Exposure: No; Hx Alcohol Use: No Hx Substance Use: No Preferred Language: [place] Communication Ability: Effective Electrical Assemblies Supervisor Required: No Beliefs That Will Affect Care: None marital status: Current Living Situation: Spouse Feels Safe at Home: Yes Assistive Devices: Cane and Glasses Physical Exam Physical Exam: Gen.: No acute distress. Alert. HEENT: Anicteric sclera. Neck: No JVD. No bruit. Cardiac: PMI was nondisplaced. No ventricular heave. Irregularly irregular. Normal S1-S2. 1/6 holosystolic murmur heard best at the apex. No rubs or gallops. Pulmonary: Clear to auscultation bilaterally without wheezes, rales, or rhonchi. Abdomen: Soft, nontender, nondistended, with normoactive bowel sounds. No bruits noted. Extremities: 2+ radial pulses bilaterally. 2+ posterior tibialis pulses bilaterally. No significant pitting edema. No cyanosis. Bilateral lower extremity varicose veins. Psychiatric: Affect appears appropriate. Back: Kyphoscoliosis noted. Results & Data ([facility]) Vital Signs (Past 12 Hours) Vital Signs Temp Pulse Resp BP Pulse Ox 03/25/21 16:00 85 17 138/81 03/25/21 15:30 120 H 21 03/25/21 15:00 103 H 28 H 121/87 96 03/25/21 14:30 108 H 20 139/89 96 03/25/21 14:00 94 H 29 H 121/96 97 03/25/21 13:30 120 H 20 135/94 03/25/21 13:15 113 H 18 126/95 92 03/25/21 13:00 91 H 18 130/79 96 03/25/21 12:51 104 H 142/89 H 03/25/21 12:46 93 H 14 142/89 H 96 03/25/21 12:30 86 15 102/78 97 03/25/21 12:16 113 H 14 113/69 94 03/25/21 12:00 139 H 23 104/77 97 03/25/21 11:55 84 15 136/82 91 03/25/21 11:30 94 H 19 119/80 96 03/25/21 11:17 95 03/25/21 11:00 108 H 18 107/77 03/25/21 10:37 106 H 22 137/83 95 03/25/21 10:00 36.8 C 124 H 20 140/107 H 98 Laboratory Results Laboratory Results - last 24 hr 03/25/21 03/25/21 03/25/21 11:10 11:10 11:10 WBC 5.06 RBC 4.71 Hgb 14.8 Hct 44.4 MCV 94.3 MCH 31.4 MCHC 33.3 RDW Std Deviation 47.6 H RDW Coeff of Amy 13.7 Plt Count 225 MPV 9.5 Immature Gran % (Auto) 0.2 Neut % (Auto) 63.6 Lymph % (Auto) 24.7 Grand % (Auto) 9.5 Eos % (Auto) 1.8 Baso % (Auto) 0.2 Neut # (Auto) 3.22 Lymph # (Auto) 1.25 Grand # (Auto) 0.48 Eos # (Auto) 0.09 Baso # (Auto) 0.01 Immature Gran # (Auto) 0.01 PT 10.6 INR 1.0 APTT 28.7 PTT Ratio 1.1 Sodium 137 Potassium 4.5 Chloride 106 Carbon Dioxide 26 Anion Gap 5.0 BUN 18 Creatinine 0.77 Est Cr Clr Drug Dosing 53.3 Est GFR ( Amer) 85.1 Est GFR (Non-Af Amer) 73.4 BUN/Creatinine Ratio 22.9 H Glucose 84 Calcium 8.9 Phosphorus 3.5 Magnesium 2.4 Total Bilirubin 0.5 AST 30 ALT 45 Alkaline Phosphatase 75 Troponin I < 0.015 Total Protein 7.1 Albumin 3.6 Globulin 3.5 Albumin/Globulin Ratio 1.0 TSH 2.640 COVID-19 Eval Order SARS-CoV-2 (PCR) 03/25/21 03/25/21 14:10 14:10 WBC RBC Hgb Hct MCV MCH MCHC RDW Std Deviation RDW Coeff of Amy Plt Count MPV Immature Gran % (Auto) Neut % (Auto) Lymph % (Auto) Grand % (Auto) Eos % (Auto) Baso % (Auto) Neut # (Auto) Lymph # (Auto) Grand # (Auto) Eos # (Auto) Baso # (Auto) Immature Gran # (Auto) PT INR APTT PTT Ratio Sodium Potassium Chloride Carbon Dioxide Anion Gap BUN Creatinine Est Cr Clr Drug Dosing Est GFR ( Amer) Est GFR (Non-Af Amer) BUN/Creatinine Ratio Glucose Calcium Phosphorus Magnesium Total Bilirubin AST ALT Alkaline Phosphatase Troponin I Total Protein Albumin Globulin Albumin/Globulin Ratio TSH COVID-19 Eval Order Covid19 at [facility] SARS-CoV-2 (PCR) NEGATIVE Diagnostic Findings ECG personally reviewed 03/25/2021 at 10:10 a.m.: Atrial fibrillation RVR 105 beats per minute. LBBB. PVCs versus aberrantly conducted complexes. Chest x-ray 03/25/2021: No acute process per Radiology. Medications Administered Current Inpatient Medications Acetaminophen (Acetaminophen 500 Mg Tab) 1,000 mg PO BID JOSE JUAN Stop: 04/24/21 20:59 Apixaban (Apixaban 5 Mg Tablet) 5 mg PO BID JOSE JUAN Stop: 04/24/21 20:59 Diltiazem HCl (Diltiazem Hcl 30 Mg Tab) 30 mg PO TID JOSE JUAN Stop: 04/24/21 14:29 Last Admin: 03/25/21 15:38 Dose: 30 mg Documented by: Levothyroxine Sodium (Levothyroxine Sodium 100 Mcg Tablet) 100 mcg PO DAILYBB JOSE JUAN Stop: 04/25/21 06:29 Metoprolol Succinate (Metoprolol Succ 50mg Ext Rel Tab) 50 mg PO QPM [facility] Stop: 04/24/21 20:59 Metoprolol Tartrate (Metoprolol Tartrate 1 Mg/Ml Vial) 5 mg IV Q5M PRN PRN Reason: Tachycardia Stop: 04/24/21 12:20 Last Admin: 03/25/21 13:40 Dose: 5 mg Documented by: Metoprolol Tartrate (Metoprolol Tartrate 50 Mg Tab) 50 mg PO BID [facility] Stop: 04/24/21 20:59 PG Care Time/CCT Total # of Minutes Spent Total Time Spent with Patient: Total time spent is greater than 50% in coordination of care (as documented) at patient's floor/unit and/or counseling patient: Coding Level of Care Code 32838 Initial Inpt Care Lvl 3 Diagnoses Atrial fibrillation with rapid ventricular response I48.91 Atrial flutter I48.92 Fatigue R53.83 Dyspnea on exertion R06.09 Mitral regurgitation I34.0
[2021-03-25] MEDS: AMIODARONE 200 MG TAB PO SCH (20:14)
[2021-03-25] MEDS: METOPROLOL TARTRATE 50 MG TAB PO SCH (20:14)
[2021-03-25] MEDS: ACETAMINOPHEN 500 MG TAB PO SCH (20:15)
[2021-03-25] MEDS: APIXABAN 5 MG TABLET PO SCH (20:15)
[2021-03-25] MEDS ORDERED: METOPROLOL SUCC 50MG EXT REL TAB PO SCH (21:00)
--- NOTE | 2021-03-26 05:58 | Electrocardiogram Report ---
Test Reason : Blood Pressure : / mmHG Vent. Rate : 105 BPM Atrial Rate : 100 BPM P-R Int : 000 ms QRS Dur : 126 ms QT Int : 332 ms P-R-T Axes : 000 -74 112 degrees QTc Int : 438 ms Atrial fibrillation with rapid ventricular response with premature ventricular or aberrantly conducte d complexes Left axis deviation Left bundle branch block Abnormal ECG When compared with ECG of 30-JUN-2020 15:01, Atrial fibrillation has replaced Sinus rhythm Vent. rate has increased BY 50 BPM QRS duration has decreased QT has shortened Confirmed by Mich Espino ([id number]) on 03/26/2021 5:58:02 AM Referred By: REFERRED SELF Confirmed By:Mich Espino
[2021-03-26] MEDS ORDERED: LEVOTHYROXINE SODIUM 100 MCG TABLET PO SCH (06:30)
[2021-03-26] MEDS: AMIODARONE 200 MG TAB PO SCH ×2 (07:49→16:35)
[2021-03-26] MEDS: METOPROLOL TARTRATE 50 MG TAB PO SCH (09:45)
[2021-03-26] MEDS: ACETAMINOPHEN 500 MG TAB PO SCH (09:45)
[2021-03-26] MEDS: APIXABAN 5 MG TABLET PO SCH (09:46)
--- NOTE | 2021-03-26 14:59 | Cardiology Progress Note ---
Date of Service March 26, 2021 Assessment & Plan (1) Atrial fibrillation with rapid ventricular response: (2) Atrial flutter: (3) Fatigue: (4) Dyspnea on exertion: (5) Mitral regurgitation: ASSESSMENT/PLAN: 1. AFib with RVR: Has had multiple cardioversions in the past and has had recur rent atrial arrhythmia as while on flecainide. Feels much better on amiodarone. Continue amiodarone load 400 mg p.o. twice daily for a total of 10 days (9 more), and then 200 mg twice daily. Treatment was discussed with her and we discussed potential adverse events with amiodarone. Monitor TSH, transaminase levels while on amiodarone. Continue anticoagulation for stroke risk reduction. If amiodarone does not convert her to sinus rhythm, we discussed cardioversion as an outpatient. We also discussed potentially cardioverting her early next week but she prefers to be discharged with follow-up as an outpatient. Monitor for bradycardia. She was asked to check her heart rate at home at least once daily. Please replace metoprolol succinate at home with metoprolol tartrate 50 mg twice daily so that adjustments can be made based on her heart rate response to amiodarone load. 2. Atrial flutter: Plan as above. 3. Mitral regurgitation: Has been non severe. Being followed as an outpatient. 4. Dyspnea with exertion: Chronic issue. She appears euvolemic. This symptom has not changed even with roman catholic of sinus rhythm in the past as noted in prior cardiology visits. Likely due to documented pulmonary issues with kyphoscoliosis and pectus, limiting chest cage expansion. Certainly elevated heart rates could contribute to dyspnea. Feels well today. 5. Fatigue: Chronic issue. She did not report improvement in this symptom despite roman catholic of sinus rhythm in the past. 6. Disposition: She would like to be discharged home. Follow-up appointment has been scheduled in the cardiology office next week with me. Will check ECG at that time. She was asked to contact the office with any questions or concerns in the meantime. Patient care communicated with Dr. Barrera of the primary hospitalist service. Admission and Anticipated Discharge Date Admission Date: March 25, 2021 Subjective She feels much better today. She has not had any further palpitations. She denies shortness of breath, syncope, near-syncope, chest pain, edema, or blee ding. She has ambulated throughout her room but not yet in the hallway. She was asked to ambulate the hallway to make sure that she feels well because she would like to go home today. Her son was present at the bedside. Review of systems: As above. Physical Exam Physical Exam: Gen.: No acute distress. Alert. HEENT: Anicteric sclera. Neck: No JVD. Cardiac: Irregularly irregular. Normal heart rate. Normal S1-S2. 1/6 holosystolic murmur heard best at the apex. No rubs or gallops. Pulmonary: Clear to auscultation bilaterally without wheezes, rales, or rhonchi. Abdomen: Soft, nontender, nondistended, with normoactive bowel sounds. No bruits noted. Extremities: 2+ radial pulses bilaterally. 2+ posterior tibialis pulses bilaterally. No significant pitting edema. No cyanosis. Bilateral lower extremity varicose veins. Psychiatric: Affect appears appropriate. Back: Kyphoscoliosis noted. Results & Data ([facility]) Vital Signs (Past 12 Hours) Vital Signs Temp Pulse Pulse Resp BP BP Pulse Ox 03/26/21 11:48 36.8 C 78 20 124/98 98 03/26/21 10:40 126 H 03/26/21 07:49 108/81 03/26/21 07:11 36.4 C L 100 H 17 83/49 L 98 03/26/21 03:32 36.5 C 97 H 17 122/78 97 Laboratory Results Laboratory Results - last 24 hr 03/25/21 03/25/21 14:10 14:10 COVID-19 Eval Order Covid19 at [facility] SARS-CoV-2 (PCR) NEGATIVE Diagnostic Findings Telemetry personally reviewed: Atrial fibrillation with improved heart rate. No significant pause. ECG personally reviewed 03/26/2021: Atrial fibrillation/flutter 84 beats per minute. LBBB. Medications Administered Current Inpatient Medications Acetaminophen (Acetaminophen 500 Mg Tab) 1,000 mg PO BID [facility] Stop: 04/24/21 20:59 Last Admin: 03/26/21 09:45 Dose: 1,000 mg Documented by: Amiodarone HCl (Amiodarone 200 Mg Tab) 400 mg PO BIDM [facility] Stop: 04/24/21 19:34 Last Admin: 03/26/21 07:49 Dose: 400 mg Documented by: Apixaban (Apixaban 5 Mg Tablet) 5 mg PO BID [facility] Stop: 04/24/21 20:59 Last Admin: 03/26/21 09:46 Dose: 5 mg Documented by: Levothyroxine Sodium (Levothyroxine Sodium 100 Mcg Tablet) 100 mcg PO DAILYBB [facility] Stop: 04/25/21 06:29 Last Admin: 03/26/21 06:12 Dose: 100 mcg Documented by: Metoprolol Tartrate (Metoprolol Tartrate 50 Mg Tab) 50 mg PO BID [facility] Stop: 04/24/21 20:59 Last Admin: 03/26/21 09:45 Dose: 50 mg Documented by: PG Care Time/CCT Total # of Minutes Spent Total Time Spent with Patient: Total time spent is greater than 50% in coordination of care (as documented) at patient's floor/unit and/or counseling patient: Coding Level of Care Code 25879 Subseq Hosp Care Lvl 3 Diagnoses Atrial fibrillation with rapid ventricular response I48.91 Atrial flutter I48.92 Fatigue R53.83 Dyspnea on exertion R06.09 Mitral regurgitation I34.0
--- NOTE | 2021-03-26 16:39 | Discharge Summary ---
Date of Service March 26, 2021 Admission HPI Per Admitting Provider 80 y/o G Hx hypothyroidism, paroxysmal atrial flutter. The pt has been cardioverted multiple times and was recently taking flecainide. She presents with palpitations. Rapid flutter was confirmed on arrival to the ER. Her rate responded partially to IV metoprolol. She denies CP or SOB. 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 Labs are unremarkable. PMH: 1) Paroxysmal atrial flutter 2) Hypothyroidism 3) Osteoarthritis 4) Kyphoscoliosis Surgical: 1) BL TOMMY 2) L TKA 3) Hernia surgery x 5 4) Cataracts Social: Does not drink or smoke Family: Father - COPD Mother - CAD Admission Exam Per Admitting Provider General: AAO x 3, no distress ENT: No erythema or exudates, no thrush Eyes: DEVONTE, EOMI Head and neck: Normocephalic, atraumatic, No JVD, neck is supple. Chest/heart: Nontender, S1,2, faunt, tachy - no murmurs Lungs: CTAB, no wheezing or crackles Abdomen: Nontender, nondistended, BS+ Neuro: AAO x 3, speech is clear, no unilateral weakness or loss of sensation, coordination intact Musculoskeletal: Pronounced kyphosis Skin: No acute rashes or ulcers Extremities: No clubbing, cyanosis, edema Principal Diagnosis Atrial fibrillation with rapid ventricular rate Discharge Exam Constitutional WD/WN, vitals as above Eyes + anicteric sclerae; normal pupil size Respiratory normal respiratory effort, lungs clear to auscultation Cardiovascular Rate/Rhythm: regular rate and + irregularly irregular Heart Sounds: + murmur (systolic @ apex) Gastrointestinal (Abdomen) normal bowel sounds, soft, nontender, no hepatosplenomegaly Skin no rashes, warm and dry Psychiatric A+Ox3, euthymic affect Discharge Data Allergies Allergy/AdvReac Type Severity Reaction Status Date / Time sesame seed Allergy Severe Anaphylaxis Verified 04/01/21 09:20 No Known Drug Allergies Allergy . Verified 04/01/21 09:20 Consultations 03/25/21 14:10 ED Decision to Admit Stat 03/25/21 16:38 Consult Cardiology Stat 03/25/21 18:32 Consult Cardiology Routine Hospital Course (1) Atrial flutter: Kavya Clark is a 80 year old female observed at [facility] from March 25-2020 due to atrial fibrillation with rapid ventricular rate. On consultation with cardiology recommended starting amiodarone for this to help with rhythm control. This will start at 400 mg twice daily for 9 days then 200 mg twice a day with further dosing to be arranged by cardiology next week. Recommend taking metoprolol tartrate instead of her usual succinate as prescribed below. Please continue on your anticoagulation with Eliquis. Cardiology will arrange follow-up next week to arrange possible cardioversion if you do not convert to a normal rhythm with the amiodarone. (2) Hypothyroidism: Total Time Total Time Spent Total Time Spent (In Minutes): 45 Discharge Plan Discharge Items Patient Disposition: Home - Self-Care Reason For Visit: RAPID AFIB Discharge Diagnosis: Atrial fibrillation with rapid ventricular rate Activity: Resume your previous activity Non-emergency contact: Waiter/Waitress Dining Car Call non-emergency contact if: you have any medication questions and your symptoms worsen Follow-up/Referrals: Mich Espino MD [Physician] - (Follow-up to be arranged next week by cardiology) Eran Jordan MD [Primary Care Provider] - Diet: Heart Healthy Addtl Attending Provider Instructions: You are observed at [facility] from March 252020 due to atrial fibrillation with rapid ventricular rate. On consultation with cardiology recommended starting amiodarone for this to help with rhythm control. This will start at 400 mg twice daily for 9 days then 200 mg twice a day with further dosing to be arranged by cardiology next week. Recommend taking metoprolol tartrate instead of your usual succinate as prescribed below (Nb: metoprolol tartrate is taken twice a day). Please continue on your anticoagulation with Eliquis. Cardiology will arrange follow-up next week to arrange possible cardioversion if you do not convert to a normal rhythm with the amiodarone. Please call the number above if you do not hear anything by Monday. Pending Studies at Discharge: No Stand-Alone Forms: My [facility], Smoking Cessation Medications and DC Order Prescriptions: New metoprolol tartrate 50 mg Tablet 50 mg PO BID Qty: 60 RF: 0 amiodarone 200 mg tablet See Rx Instructions .ROUTE .COMPLEX Qty: 78 RF: 0 Continued Eliquis 5 mg tablet 5 mg PO BID Qty: 180 RF: 3 omega tumeric capsule 1 cap PO QAM RF: 0 diclofenac sodium 1 % gel 1 ea topical DAILY PRN (Reason: Pain) RF: 0 multivitamin Tablet 1 tab PO QAM RF: 0 levothyroxine [Levo-T] 100 mcg Tablet 100 mcg PO QAM RF: 0 polyethylene glycol 3350 [Miralax] 17 gram/dose Powder 17 g PO Q2D RF: 0 Calcium 600 + D(3) 600 mg calcium- 200 unit Capsule 1 cap PO BID RF: 0 PreserVision AREDS-2 [id number] Capsule 1 tab PO QAM RF: 0 acetaminophen [Tylenol Extra Strength] 500 mg tablet 1,000 mg PO BID RF: 0 Discontinued metoprolol succinate 50 mg tablet extended release 24 hr 50 mg PO QPM Qty: 0 RF: 0 Discharge Orders: Discharge Order (Routine); Ordered 03/26/21 Ordered By: Kota Barrera Admission Data Admit Date/Time: 03/25/21 14:48 Attending Provider: Kota Barrera Admit Provider: Nima Santos Primary Care Provider: Eran Jordan Other Providers: Mich Espino Other Interventions: Discharge Summary Assessment (RN) Last Done: 03/26/21 16:48 Coding Level of Care Code D/C DAY MANAGEMENT >30 MINS Diagnoses Atrial flutter I48.92 Hypothyroidism E03.9
--- NOTE | 2021-03-27 06:26 | Electrocardiogram Report ---
Test Reason : Blood Pressure : / mmHG Vent. Rate : 084 BPM Atrial Rate : 326 BPM P-R Int : 000 ms QRS Dur : 134 ms QT Int : 428 ms P-R-T Axes : 000 -68 138 degrees QTc Int : 505 ms Atrial fibrillation / Atrial flutter Left axis deviation Left bundle branch block Abnormal ECG When compared with ECG of 25-MAR-2021 10:10, No significant change Confirmed by Mich Espino ([id number]) on 03/27/2021 6:25:52 AM Referred By: REFERRED SELF Confirmed By:Mich Espino
== END 2021-03-26 17:35 | disposition home or self-care (01) | DRG 310 ==
LOC: ED 09:57 → SUATTDRO 14:48 → 2S 14:48
DX: R06.09 Other forms of dyspnea; E03.9 Hypothyroidism, unspecified; Z98.890 Other specified postprocedural states; Z79.899 Other long term (current) drug therapy; Z79.890 Hormone replacement therapy; Z79.01 Long term (current) use of anticoagulants; Z79.1 Long term (current) use of non-steroidal anti-inflammatories (NSAID); R53.82 Chronic fatigue, unspecified; I34.0 Nonrheumatic mitral (valve) insufficiency; Z91.018 Allergy to other foods; Z82.49 Family history of ischemic heart disease and other diseases of the circulatory system; I48.92 Unspecified atrial flutter; I48.0 Paroxysmal atrial fibrillation

== ENCOUNTER 2024-07-17 19:42 | Inpatient (IN) ==
[2024-07-17] MEDS: dilTIAZem HCl 5 MG/ML 5 ML VIAL IV STA ×2 (19:55→20:00)
[2024-07-17] MEDS: dilTIAZem HCl 5 MG/ML 5 ML VIAL IV ONE (20:07)
[2024-07-17 20:16] LABS: iSTAT Creatinine 1.1 mg/dl (0.6-1.3); iSTAT Hemoglobin 15.6 g/dl (12.0-16.0); iSTAT Ionized Calcium 1.12 mmol/l (1.12-1.32); iSTAT Potassium 4.3 mmol/L (3.3-5.0)
[2024-07-17 20:17] LABS: Basophils # (auto) 0.06 K/uL (0.00-0.20); Basophils % (auto) 0.9 %; Eosinophils # (auto) 0.09 K/uL (0.00-0.50); Eosinophils % (auto) 1.3 %; Hematocrit (blood only) 45.7 % (37.0-47.0); Hemoglobin 15.2 g/dl (12.0-16.0); Immature Granulocytes # (auto) 0.04 K/uL (0.01-0.20); Immature Granulocytes % (auto) 0.6 %; Lymphocytes # (auto) 2.12 K/uL (1.20-3.40); Lymphocytes % (auto) 30.9 %; Mean Corpuscular Hemoglobin 31.5 pg (25.0-34.0); Mean Corpuscular Hgb Conc 33.3 g/dL (32.0-36.0); Mean Corpuscular Volume 94.6 fL (80.0-100.0); Monocytes # (auto) 0.35 K/uL (0.11-0.59); Monocytes % (auto) 5.1 %; Neutrophils # (auto) 4.21 K/uL (1.40-6.50); Neutrophils % (auto) 61.2 %; Platelet Count 208 K/uL (130-400); RDW Coefficient of Variation 13.9 % (11.5-14.5); RDW Standard Deviation 48.6 fL (36.4-46.3); Red Blood Count 4.83 M/uL (4.20-5.40); White Blood Count 6.87 K/ul (4.8-10.8)
[2024-07-17 20:32] LABS: Appearance Urine Clear (Clear); Bacteria Urine Automated None Seen (None Seen); Bilirubin Urine Negative (Negative); Blood Urine Negative (Negative); Cast Urine Automated 0-2 /lpf (0-2); Color Urine Yellow; Glucose Urine UA Negative (Negative); Ketones Urine Negative (Negative); Leukocyte Esterase Urine 2+ (Negative); Nitrite Urine Negative (Negative); Protein Urine Negative (Negative); RBC Urine Automated 0-2 /hpf (0-2); Specific Gravity Urine 1.018 (1.000-1.030); Urobilinogen Urine Negative (Negative); WBC Urine Automated 0-5 /hpf (0-5); pH Urine 5.5 (4.5-7.5)
[2024-07-17 20:35] LABS: BUN Creatinine Ratio 21.8 (10-20); Magnesium 1.9 mg/dl (1.7-2.4); Potassium 4.3 mmol/L (3.5-5.1)
[2024-07-17 20:43] LABS: Partial Thromboplastin Time 28 Seconds (21-31); Prothrombin Time 11.1 Seconds (9.0-12.0)
--- NOTE | 2024-07-17 21:45 | History & Physical Report ---
Date of Service July 17, 2024 Assessment & Plan (1) Atrial flutter with rapid ventricular response: Plan: Patient presented in atrial flutter with RVR, rate of 136 bpm, symptomatic with shortness of breath. Given Diltiazem 25mg IV with improvement in heart rate - presently 76bpm. Patient is anticoagulated on Apixaban and reports being compliant with her medications. SOB earlier today associated with patient's elevated heart rate. Otherwise she denies chest pain, palpitations, dizziness, syncope or signs/symptoms of heart failure. Recent outpatient patient monitor revealed 100% atrial flutter. Patient is scheduled to see Cardiology at [facility] on 08/02/24 -Observation to medical with telemetry -Continue Apixaban 2.5mg po BID - PM dose ordered for the ER -Continue metoprolol 25mg po BID - PM dose ordered for the ER. Plan Chronic Medical Conditions: Hypothyroidism - patient on Synthroid 100mcg po daily -Check TSH with AM labs -Continue Synthroid Dementia - patient is able to answer questions but is slow to respond and does not recall a lot of details of events prior to arrival -Delirium prevention strategies -Continue Namenda F/E/N - Saline lock. Electrolytes WNL. Regular diet as tolerated PPx - On Apixaban for AF Code - Full per discussion with patient Dispo - Observation to medical with telemetry History of Present Illness Chief Complaint: shortness of breath Primary Care Provider: Joaquin Jordan MD Kavya Clark is an 84yo female with history of atrial fibrillation, hypothyroidism and dementia presenting with shortness of breath. History is provided by patient as well as patient's at bedside. Patient reports that she has not been feeling well for the last several days. Today she became more short of breath. and other family member at bedside reported that patient was "gasping for air" at one point. They checked her heart rate and found it to be elevated at 140bpm. Patient denies chest pain or palpitations. No dizziness, syncope or presyncope. No edema or orthopnea. No cough, fever or chills. Upon arrival to the ER patient found to be in atrial flutter with HR of 136. She was administered Cardizem 25mg IV with improvement in heart rate. Cardizem drip was ordered but was not initiated. Patient follows with Cardiology locally as well as at [facility]. She has a longstanding history of atrial fibrillation. She has had multiple cardioversions in the past (last 12/15/22). She had a pulmonary vein isolation and caval tricuspid isthmus ablation performed on 03/02/23. She did have some transient heart block following this procedure which resolved. She most recently had a Holter monitor for two weeks - results viewed tonight with assistance of resident geographic information systems manager. Study showed persistent atrial flutter 100% burden with variable block. Occasional rapid rates with 2:1 conduction and 0.2% PVCs. ER Course: Diltiazem 10mg IV + 15mg IV Allergies Allergy/AdvReac Type Severity Reaction Status Date / Time sesame seed Allergy Severe Anaphylaxis Verified 01/19/24 11:26 Home Medications Medication Instructions Recorded Confirmed Type calcium 600 mg (as 1 cap PO QAM 01/28/19 03/11/24 History carbonate)-vitamin D3 5 mcg (200 unit) capsule (Calcium 600 + D(3)) multivitamin 1 tab PO QAM 01/28/19 03/11/24 History acetaminophen 500 mg tablet 1,000 mg PO UD PRN Pain 02/17/20 03/11/24 History (Tylenol Extra Strength) Prevagen 1 dose PO QAM 11/17/22 03/11/24 History levothyroxine 100 mcg tablet 100 mcg PO DAILY 06/12/23 07/17/24 History safety needles 25 gauge x 1" (BD #15 ea 11/02/23 03/11/24 Rx Eclipse) apixaban 2.5 mg tablet (Eliquis) 2.5 mg PO BID 03/11/24 07/17/24 History cyanocobalamin (vitamin B-12) 1,000 mcg subcut .COMPLEX 90 days 04/05/24 07/17/24 Rx 1,000 mcg/mL injection solution #10 mL memantine 5 mg tablet 5 mg PO BID 90 days #180 tabs 06/24/24 07/17/24 Rx metoprolol succinate 25 mg 25 mg PO BID 07/17/24 07/17/24 History tablet,extended release 24 hr Past Med/Surg History Problem List (Updated 07/17/24 @ 22:07 by David Simons MD) Atrial flutter with rapid ventricular response (Acute) Dementia Vitamin B12 deficiency Peripheral vascular disease Memory loss On anticoagulant therapy Mitral regurgitation Dyspnea on exertion Encounter for pre-operative examination Decreased exercise tolerance (Acute) Abnormal nuclear stress test (Acute) Abnormal electrocardiogram (Acute) Pectus excavatum Fatigue Vaginal bleeding Urinary symptom or sign Microscopic hematuria Urethral caruncle Atrial flutter Paroxysmal atrial fibrillation Atrial fibrillation with rapid ventricular response (Acute) Persistent atrial fibrillation On amiodarone therapy Fatigue Hypothyroidism Chest pain Elevated blood pressure reading without diagnosis of hypertension Atrial flutter with rapid ventricular response Medical History PVT (paroxysmal ventricular tachycardia) Tricuspid regurgitation Non severe per cardio Kyphoscoliosis Sensorineural hearing loss (SNHL) of right ear with restricted hearing of left ear Tinnitus, bilateral Osteoporosis Raynauds phenomenon Shortness of breath CHAPMAN per cardio records- chronic- pt euvolemic at 04/01/21 cardio visit "Likely due to documented pulmonary issues, with kyphoscoliosis and pectus, limiting chest cage expansion." PT REPORTS SOB IN HER HX, NO OTHER KNOWN LUNG PROBLEMS OTHER THAN EMPHYSEMA. SOB USUALLY NOT A PROBLEM OTHER THAN WITH THE CURRENT AFIB RHYTHM...REASON FOR UPCOMING PROCEDURE LBBB (left bundle branch block) Macular degeneration Mitral valve prolapse with MR- remains non severe per cardio records Emphysema lung Degenerative disc disease Hypothyroidism SVT (supraventricular tachycardia) HX SVT Atrial fibrillation DX LONG TIME AGO WITH AFIB/HX CARDIOVERSIONS on Eliquis; [facility] cardio Surgical History History of cardioversion x6, most recent 11/2022, [facility] H/O varicose vein ligation History of total knee replacement LEFT 07/04/13 - MAC #3, ETT #7.0, HiLo Oral, Grade 1 View, Atraumatic DL X 1 History of total hip arthroplasty BILATERAL H/O bladder repair surgery Anterior and posterior colporrhaphy, uterine suspension w/ mesh History of Fanta fundoplication H/O bilateral inguinal hernia repair H/O umbilical hernia repair History of colonoscopy History of cataract surgery BILATERAL Family History Mother Emphysema of lung Osteoporosis Heart disease Father Hearing loss Heart disease Sister Lung cancer Daughter Breast cancer Denies family history of Ovarian cancer No family history of adverse response to anesthesia No family history of bleeding disorder Allergies Colorectal cancer Cancer Hypertension Uterine cancer Stroke Asthma Social History Smoking Status: Never smoker Second Hand Exposure: Yes (hx as child); Do You Dip or Chew Tobacco: No; Hx Alcohol Use: Yes Alcohol Intake Frequency Comment: couple times a year Hx Substance Use: No Preferred Language: Somali Communication Ability: Effective Ticket Manager Required: No Beliefs That Will Affect Care: None marital status: Current Living Situation: Spouse Feels Safe at Home: Yes Assistive Devices: Cane, Glasses and Walker Review of Systems 2 Review of Systems: All systems reviewed & are unremarkable except as noted in HPI & below Physical Exam 2 Physical Exam: General: patient resting comfortably, NAD, non-toxic in appearance Skin: warm, dry, intact, no rashes or lesions HEENT: NC/AT, PERRL, EOMI, anicteric sclera, conjunctiva without injection, external ear normal to inspection and nontender, nares patent, moist mucus membranes, dentition intact, no oropharyngeal lesions, neck supple, trachea midline, no LAD, no thyromegaly, no JVD Heart: +S1/S2, fairly regular with ectopy, no m/r/g Lungs: equal air entry bilaterally, no rales/rhonchi/wheezes Abd: +BS, soft, NT/ND, no masses/organomegaly/ascites Ext: warm, 2+ pulses in UE/LE bilaterally, no clubbing/cyanosis or edema, some small varicosities present on bilateral LE Neuro: grossly non-focal, patient answering questions appropriately, somewhat slow to respond occasionally Results & Data Results & Data Vital Signs (Past 12 Hours) Vital Signs Temp Pulse Pulse Resp BP BP Pulse Ox 07/17/24 21:01 07/17/24 21:00 68 18 95/68 L 95 07/17/24 20:30 95/62 L 07/17/24 20:30 76 18 94 07/17/24 20:24 108/68 07/17/24 20:10 07/17/24 20:09 98 07/17/24 20:03 104 H 19 95 07/17/24 20:00 113/91 07/17/24 20:00 138 H 23 94 07/17/24 20:00 139 H 07/17/24 19:44 36.3 C L 136 H 20 101/83 98 O2 Del Method 07/17/24 21:01 Room Air 07/17/24 21:00 Room Air 07/17/24 20:30 07/17/24 20:30 07/17/24 20:24 07/17/24 20:10 Room Air 07/17/24 20:09 Room Air 07/17/24 20:03 07/17/24 20:00 07/17/24 20:00 07/17/24 20:00 07/17/24 19:44 Room Air Laboratory Results 07/17/24 20:02 07/17/24 20:02 Diagnostic Findings CXR - per my interpretation, patient appears to have emphysematous changes with some hyperinflation and flattened diaphragms, increased interstitial markings, no obvious infiltrate or edema ECG Additional Comments: LBBB present on prior EKGs. PG Care Time/CCT Total # of Minutes Spent Total Time Spent with Patient: Total time spent is greater than 50% in coordination of care (as documented) at patient's floor/unit and/or counseling patient: Coding Level of Care Code 30043 INT INP/OBS CARE 2/55MIN Diagnoses Atrial flutter with rapid ventricular response I48.92
--- NOTE | 2024-07-17 21:56 | Emergency Department Note ---
History of Present Illness General Chief Complaint: Shortness of Breath/Dyspnea Stated Complaint: HIGH HEART RATE, SOB Time Seen by Provider: 07/17/24 19:50 Source: family History of Present Illness Provider Complaint: + palpitations Onset (ago): 2 day(s) Context: + occurred during rest Arrhythmia history: + SVT and + on anti-coagulants Associated symptoms: + chest pain, + shortness of breath and + near-syncope; no vomiting Treatments prior to arrival: + beta-jennifer Home Medications Medication Instructions Recorded Confirmed Type calcium 600 mg (as 1 cap PO QAM 01/28/19 03/11/24 History carbonate)-vitamin D3 5 mcg (200 unit) capsule (Calcium 600 + D(3)) multivitamin 1 tab PO QAM 01/28/19 03/11/24 History acetaminophen 500 mg tablet 1,000 mg PO UD PRN Pain 02/17/20 03/11/24 History (Tylenol Extra Strength) Prevagen 1 dose PO QAM 11/17/22 03/11/24 History levothyroxine 100 mcg tablet 100 mcg PO DAILY 06/12/23 07/17/24 History safety needles 25 gauge x 1" (BD #15 ea 11/02/23 03/11/24 Rx Eclipse) apixaban 2.5 mg tablet (Eliquis) 2.5 mg PO BID 03/11/24 07/17/24 History cyanocobalamin (vitamin B-12) 1,000 mcg subcut .COMPLEX 90 days 04/05/24 07/17/24 Rx 1,000 mcg/mL injection solution #10 mL memantine 5 mg tablet 5 mg PO BID 90 days #180 tabs 06/24/24 07/17/24 Rx metoprolol succinate 25 mg 25 mg PO BID 07/17/24 07/17/24 History tablet,extended release 24 hr Allergies Allergy/AdvReac Type Severity Reaction Status Date / Time sesame seed Allergy Severe Anaphylaxis Verified 01/19/24 11:26 Past Med/Surg History Problem List (Updated 07/17/24 @ 22:07 by David Simons MD) Atrial flutter with rapid ventricular response (Acute) Dementia Vitamin B12 deficiency Peripheral vascular disease Memory loss On anticoagulant therapy Mitral regurgitation Dyspnea on exertion Encounter for pre-operative examination Decreased exercise tolerance (Acute) Abnormal nuclear stress test (Acute) Abnormal electrocardiogram (Acute) Pectus excavatum Fatigue Vaginal bleeding Urinary symptom or sign Microscopic hematuria Urethral caruncle Atrial flutter Paroxysmal atrial fibrillation Atrial fibrillation with rapid ventricular response (Acute) Persistent atrial fibrillation On amiodarone therapy Fatigue Hypothyroidism Chest pain Elevated blood pressure reading without diagnosis of hypertension Atrial flutter with rapid ventricular response Medical History PVT (paroxysmal ventricular tachycardia) Tricuspid regurgitation Non severe per cardio Kyphoscoliosis Sensorineural hearing loss (SNHL) of right ear with restricted hearing of left ear Tinnitus, bilateral Osteoporosis Raynauds phenomenon Shortness of breath CHAPMAN per cardio records- chronic- pt euvolemic at 04/01/21 cardio visit "Likely due to documented pulmonary issues, with kyphoscoliosis and pectus, limiting chest cage expansion." PT REPORTS SOB IN HER HX, NO OTHER KNOWN LUNG PROBLEMS OTHER THAN EMPHYSEMA. SOB USUALLY NOT A PROBLEM OTHER THAN WITH THE CURRENT AFIB RHYTHM...REASON FOR UPCOMING PROCEDURE LBBB (left bundle branch block) Macular degeneration Mitral valve prolapse with MR- remains non severe per cardio records Emphysema lung Degenerative disc disease Hypothyroidism SVT (supraventricular tachycardia) HX SVT Atrial fibrillation DX LONG TIME AGO WITH AFIB/HX CARDIOVERSIONS on Eliquis; [facility] [place] [facility] Surgical History History of cardioversion x6, most recent 11/2022, [facility] H/O varicose vein ligation History of total knee replacement LEFT 07/04/13 - MAC #3, ETT #7.0, HiLo Oral, Grade 1 View, Atraumatic DL X 1 History of total hip arthroplasty BILATERAL H/O bladder repair surgery Anterior and posterior colporrhaphy, uterine suspension w/ mesh History of Fanta fundoplication H/O bilateral inguinal hernia repair H/O umbilical hernia repair History of colonoscopy History of cataract surgery BILATERAL Family History Mother Emphysema of lung Osteoporosis Heart disease Father Hearing loss Heart disease Sister Lung cancer Daughter Breast cancer Denies family history of Ovarian cancer No family history of adverse response to anesthesia No family history of bleeding disorder Allergies Colorectal cancer Cancer Hypertension Uterine cancer Stroke Asthma Social History Smoking Status: Never smoker Second Hand Exposure: Yes (hx as child); Do You Dip or Chew Tobacco: No; Hx Alcohol Use: Yes Alcohol Intake Frequency Comment: couple times a year Hx Substance Use: No Preferred Language: Latvian Communication Ability: Effective Forest [employer] Required: No Beliefs That Will Affect Care: None marital status: Current Living Situation: Spouse Feels Safe at Home: Yes Assistive Devices: Cane, Glasses and Walker Physical Exam 2 Vital Signs: Vital Signs - 24 hr 07/17/24 19:44 07/17/24 20:00 07/17/24 20:00 Temperature 36.3 C L Temperature Source Temporal Artery Sc an Pulse Rate 136 H 139 H 138 H Pulse Rate [Apical ] Pulse Rate from Sp O2 Sensor 139 H Respiratory Rate 20 23 Respiratory Effort / Characteristics Non-Labored Sponta neous Respiratory Depth Normal Respiratory Patter n Regular Blood Pressure 101/83 Blood Pressure [Ri ght Arm] Blood Pressure Laurence n 89 Blood Pressure Laurence n [Right Arm] Pulse Oximetry 98 94 Oxygen Delivery Me thod Room Air Sepsis Recent Feve r Within 48 Hours No Sepsis New/Unexpla ined Change in Men eva Status N/A Sepsis Action Take n by Nursing No Action Required 07/17/24 20:00 07/17/24 20:03 07/17/24 20:09 Temperature Temperature Source Pulse Rate 104 H Pulse Rate [Apical ] Pulse Rate from Sp O2 Sensor Respiratory Rate 19 Respiratory Effort / Characteristics Respiratory Depth Respiratory Patter n Blood Pressure 113/91 Blood Pressure [Ri ght Arm] Blood Pressure Laurence n 100 Blood Pressure Laurence n [Right Arm] Pulse Oximetry 95 98 Oxygen Delivery Me thod Room Air Sepsis Recent Feve r Within 48 Hours Sepsis New/Unexpla ined Change in Men eva Status Sepsis Action Take n by Nursing 07/17/24 20:10 07/17/24 20:24 07/17/24 20:30 Temperature Temperature Source Pulse Rate 76 Pulse Rate [Apical ] Pulse Rate from Sp O2 Sensor Respiratory Rate 18 Respiratory Effort / Characteristics Respiratory Depth Respiratory Patter n Blood Pressure 108/68 Blood Pressure [Ri ght Arm] Blood Pressure Laurence n 85 Blood Pressure Laurence n [Right Arm] Pulse Oximetry 94 Oxygen Delivery Me thod Room Air Sepsis Recent Feve r Within 48 Hours Sepsis New/Unexpla ined Change in Men eva Status Sepsis Action Take n by Nursing 07/17/24 20:30 07/17/24 21:00 07/17/24 21:01 Temperature Temperature Source Pulse Rate Pulse Rate [Apical ] 68 Pulse Rate from Sp O2 Sensor Respiratory Rate 18 Respiratory Effort / Characteristics Non-Labored Respiratory Depth Normal Normal Respiratory Patter n Regular Blood Pressure Blood Pressure [Ri ght Arm] 95/62 L 95/68 L Blood Pressure Laurence n Blood Pressure Laurence n [Right Arm] 73 77 Pulse Oximetry 95 Oxygen Delivery Me thod Room Air Room Air Sepsis Recent Feve r Within 48 Hours Sepsis New/Unexpla ined Change in Men eva Status Sepsis Action Take n by Nursing Physical Exam: Physical Exam GENERAL: oriented to person, place, and time. appears well-developed and well- nourished. HENT: Exam performed. - Head: Normocephalic and atraumatic. EYES: Conjunctivae and EOM are normal. Right eye exhibits no discharge. Left eye exhibits no discharge. No scleral icterus. NECK: Normal range of motion. Neck supple. No JVD present. CV: Tachycardic rate, irregular rhythm, normal heart sounds and intact distal pulses. There is no peripheral edema. Palpable radial pulses bue. PULM/CHEST: Effort normal and breath sounds normal. No respiratory distress. No stridor. no wheezes. no rales. ABD: The abdomen is soft. There is no tenderness. NEURO: Motor and sensation grossly intact. SKIN: Skin is warm and dry. He is not diaphoretic. PSYCH: normal mood and affect. Behavior is normal. Judgment and thought content normal. Course Course 1950: The patient was evaluated in room A10. A complete history and physical exam was performed Cardiac monitoring: An order was placed for continuous cardiac monitoring. The monitor shows a rate of 140 with atrial flutter rhythm interpreted by me Large-bore IV access was obtained. Cardizem 10 mg bolus was administered with no significant improvement of the patient's ventricular rate. A repeat bolus of Cardizem 15 mg was ordered which did improve the patient's ventricular rate. Will plan on starting the patient on Cardizem drip if her ventricular rate remains greater than 120 consistently. 2158: Vital signs stable. Patient's ventricular rate has remained less than 120. Will hold off on Cardizem drip. Initial lactic acid 2.3. Repeat lactic acid 1.7. High-sensitivity troponin 16.Patient will be admitted to the [place] [facility] hospitalist team. Administered Medications Discontinued Medications Diltiazem HCl (Diltiazem Hcl 5 Mg/Ml 5 Ml Vial) Confirm Administered Dose 25 mg IV .STK-MED ONE Stop: 07/17/24 19:57 Last Admin: 07/17/24 20:07 Dose: Not Given Documented By: SHANIKA Diltiazem HCl (Diltiazem Hcl 5 Mg/Ml 5 Ml Vial) 10 mg IV NOW STA Stop: 07/17/24 19:58 Last Admin: 07/17/24 19:55 Dose: 10 mg Documented By: SHANIKA Co-signed By: LINDSAY Diltiazem HCl (Diltiazem Hcl 5 Mg/Ml 5 Ml Vial) 15 mg IV NOW STA Stop: 07/17/24 20:02 Last Admin: 07/17/24 20:00 Dose: 15 mg Documented By: SHANIKA Co-signed By: LINDSAY Medical Decision Making Laboratory Data Attestation: I reviewed the patient's lab results. 07/17/24 20:02 07/17/24 20:02 Lab Results 07/17/24 07/17/24 07/17/24 Range/Units 20:02 20:04 20:15 WBC 6.87 (4.8-10.8) K/ul RBC 4.83 (4.20-5.40) M/uL Hgb 15.2 (12.0-16.0) g/dl POC Hgb 15.6 (12.0-16.0) g/dl Hct 45.7 (37.0-47.0) % POC Hct 46 (37-47) % MCV 94.6 (80.0-100.0) fL MCH 31.5 (25.0-34.0) pg MCHC 33.3 (32.0-36.0) g/dL RDW Std Deviation 48.6 H (36.4-46.3) fL RDW Coeff of Amy 13.9 (11.5-14.5) % Plt Count 208 (130-400) K/uL MPV 10.0 (9.4-12.4) fL Immature Gran % (Auto) 0.6 % Neut % (Auto) 61.2 % Lymph % (Auto) 30.9 % Alfalfa % (Auto) 5.1 % Eos % (Auto) 1.3 % Baso % (Auto) 0.9 % Neut # (Auto) 4.21 (1.40-6.50) K/uL Lymph # (Auto) 2.12 (1.20-3.40) K/uL Alfalfa # (Auto) 0.35 (0.11-0.59) K/uL Eos # (Auto) 0.09 (0.00-0.50) K/uL Baso # (Auto) 0.06 (0.00-0.20) K/uL Immature Gran # (Auto) 0.04 (0.01-0.20) K/uL PT 11.1 (9.0-12.0) Seconds INR 1.0 (0.9-1.1) APTT 28 (21-31) Seconds PTT Ratio 1.0 POC Sodium 137 (135-144) mmol/L Sodium 135 L (136-145) mmol/L POC Potassium 4.3 (3.3-5.0) mmol/L Potassium 4.3 (3.5-5.1) mmol/L POC Chloride 105 (101-112) mmol/L Chloride 106 (98-107) mmol/L Carbon Dioxide 21 (21-32) mmol/L POC Total CO2 20 L (24-31) mmol/L Anion Gap 8 (3-11) POC Anion Gap 18.0 (16-25) mmol/L POC BUN 22 H (7-18) mg/dl BUN 22 (6-23) mg/dl Creatinine 1.01 (0.6-1.2) mg/dl POC Creatinine 1.1 (0.6-1.3) mg/dl Est Cr Clr Drug Dosing 41.0 ml/min eGFR 55.24 BUN/Creatinine Ratio 21.8 H (10-20) Glucose 135 H (70-99(Fasting)) mg/dl POC Glucose (other) 140 H (70-99) mg/dl Lactate 2.3 H* (0.4-2.0) mmol/L Calcium 9.0 (8.6-10.3) mg/dl POC Ioniz Calcium Fausto 1.12 (1.12-1.32) mmol/l Magnesium 1.9 (1.7-2.4) mg/dl Troponin I High Sens 16.0 H (0-14) pg/ml Lipase 10 L (11-82) U/L Urine Color Yellow Urine Appearance Clear (Clear) Urine pH 5.5 (4.5-7.5) Ur Specific [place] 1.018 (1.000-1.030) Urine Protein Negative (Negative) Urine Glucose (UA) Negative (Negative) Urine Ketones Negative (Negative) Urine Blood Negative (Negative) Urine Nitrite Negative (Negative) Urine Bilirubin Negative (Negative) Urine Urobilinogen Negative (Negative) Ur Leukocyte Esterase 2+ H (Negative) Urine WBC (Auto) 0-5 (0-5) /hpf Urine RBC (Auto) 0-2 (0-2) /hpf U Hyaline Cast (Auto) 0-2 (0-2) /lpf U Epithel Cells (Auto) 3-5 H (0-2) /hpf Urine Bacteria (Auto) None Seen (None Seen) 07/17/24 Range/Units 21:23 WBC (4.8-10.8) K/ul RBC (4.20-5.40) M/uL Hgb (12.0-16.0) g/dl POC Hgb (12.0-16.0) g/dl Hct (37.0-47.0) % POC Hct (37-47) % MCV (80.0-100.0) fL MCH (25.0-34.0) pg MCHC (32.0-36.0) g/dL RDW Std Deviation (36.4-46.3) fL RDW Coeff of Amy (11.5-14.5) % Plt Count (130-400) K/uL MPV (9.4-12.4) fL Immature Gran % (Auto) % Neut % (Auto) % Lymph % (Auto) % Alfalfa % (Auto) % Eos % (Auto) % Baso % (Auto) % Neut # (Auto) (1.40-6.50) K/uL Lymph # (Auto) (1.20-3.40) K/uL Alfalfa # (Auto) (0.11-0.59) K/uL Eos # (Auto) (0.00-0.50) K/uL Baso # (Auto) (0.00-0.20) K/uL Immature Gran # (Auto) (0.01-0.20) K/uL PT (9.0-12.0) Seconds INR (0.9-1.1) APTT (21-31) Seconds PTT Ratio POC Sodium (135-144) mmol/L Sodium (136-145) mmol/L POC Potassium (3.3-5.0) mmol/L Potassium (3.5-5.1) mmol/L POC Chloride (101-112) mmol/L Chloride (98-107) mmol/L Carbon Dioxide (21-32) mmol/L POC Total CO2 (24-31) mmol/L Anion Gap (3-11) POC Anion Gap (16-25) mmol/L POC BUN (7-18) mg/dl BUN (6-23) mg/dl Creatinine (0.6-1.2) mg/dl POC Creatinine (0.6-1.3) mg/dl Est Cr Clr Drug Dosing ml/min eGFR BUN/Creatinine Ratio (10-20) Glucose (70-99(Fasting)) mg/dl POC Glucose (other) (70-99) mg/dl Lactate 1.7 (0.4-2.0) mmol/L Calcium (8.6-10.3) mg/dl POC Ioniz Calcium Fausto (1.12-1.32) mmol/l Magnesium (1.7-2.4) mg/dl Troponin I High Sens (0-14) pg/ml Lipase (11-82) U/L Urine Color Urine Appearance (Clear) Urine pH (4.5-7.5) Ur Specific [place] (1.000-1.030) Urine Protein (Negative) Urine Glucose (UA) (Negative) Urine Ketones (Negative) Urine Blood (Negative) Urine Nitrite (Negative) Urine Bilirubin (Negative) Urine Urobilinogen (Negative) Ur Leukocyte Esterase (Negative) Urine WBC (Auto) (0-5) /hpf Urine RBC (Auto) (0-2) /hpf U Hyaline Cast (Auto) (0-2) /lpf U Epithel Cells (Auto) (0-2) /hpf Urine Bacteria (Auto) (None Seen) Imaging Data Attestation: I personally reviewed and interpreted this imaging study as follows: My Impression: No significant change from the chest x-ray in April 2024 ECG Data Attestation: I personally reviewed and interpreted this ECG as follows: Additional Comments: EKG #1 at 1953: Atrial flutter with rate of 138. QRS 132 QTc 539. Left bundle branch block present. EKG #2 at 2000 status post Cardizem 10 mg IV bolus: Atrial flutter with rate of 137. QRS 124 QTc 534. Left bundle branch block present. EKG #3 at 2002 status post repeat Cardizem bolus of 15 mg: Atrial flutter with rate of 114. QRS 124. QTc 446. Left bundle branch block present. No significant change in the EKG going back to March 2023. EKG #4 at 2003: Atrial flutter with a rate of 80. QRS 142. QTc 507. Left bundle branch block present. Sgarbossa negative. No significant change from the EKG going back to March 2023. MDM Narrative 1950: The patient was evaluated in room A10. A complete history and physical exam was performed Cardiac monitoring: An order was placed for continuous cardiac monitoring. The monitor shows a rate of 140 with atrial flutter rhythm interpreted by me Large-bore IV access was obtained. Cardizem 10 mg bolus was administered with no significant improvement of the patient's ventricular rate. A repeat bolus of Cardizem 15 mg was ordered which did improve the patient's ventricular rate. Will plan on starting the patient on Cardizem drip if her ventricular rate remains greater than 120 consistently. 2158: Vital signs stable. Patient's ventricular rate has remained less than 120. Will hold off on Cardizem drip. Initial lactic acid 2.3. Repeat lactic acid 1.7. High-sensitivity troponin [facility]. [facility] & Plan Atrial flutter with rapid ventricular response Critical Care Time Critical Care Time: Yes Total Critical Care Time: 38 I have personally spent greater than 38 minutes of critical care time in the direct management of this patient. This includes bedside care, interpretation of diagnostic studies, and testing, discussion with consultants, patient, and family members, and other required patient management activities. This 38 minutes is in excess of all separately billable procedures. Discharge Plan Visit Data Chief Complaint: Shortness of Breath/Dyspnea Stated Complaint: HIGH HEART RATE, SOB ED Provider: David Simons Discharge Problem: Atrial flutter with rapid ventricular response Patient Disposition: Admitted As Inpatient Forms Stand Alone Forms: My [facility] Prescriptions Prescriptions: No Action cyanocobalamin (vitamin B-12) 1,000 mcg/mL solution 1,000 mcg subcut .COMPLEX 90 Days Qty: 10 1RF Rx Instructions: Inject 1 mL IM weekly for 4 weeks, then inject 1 mL IM once monthly thereafter. memantine 5 mg tablet 5 mg PO BID 90 Days Qty: 180 1RF levothyroxine 100 mcg tablet 100 mcg PO DAILY Prevagen 1 dose PO QAM (DME) BD Eclipse 25 gauge x 1" needle See Rx Instructions .Route Qty: 15 0RF Rx Instructions: As directed Eliquis 2.5 mg tablet 2.5 mg PO BID multivitamin Tablet 1 tab PO QAM Calcium 600 + D(3) 600 mg calcium- 200 unit Capsule 1 cap PO QAM acetaminophen [Tylenol Extra Strength] 500 mg tablet 1,000 mg PO UD PRN (Reason: Pain) metoprolol succinate 25 mg tablet extended release 24 hr 25 mg PO BID Referrals Referrals: Joaquin Jordan MD [Primary Care Provider] -
[2024-07-17] MEDS: dilTIAZem HCL 125 MG in DEXTROSE 5% 100 ML IV SCH (21:58)
[2024-07-17] MEDS: STAT IV Infusion **Titration per Protocol STA (21:59)
[2024-07-17] MEDS: METOPROLOL SUCC 25MG EXT REL TAB PO STA (22:07)
[2024-07-17] MEDS: APIXABAN 2.5 MG TAB PO SCH (22:08)
[2024-07-17] MEDS: MEMANTINE HCL 5 MG TAB PO STA (22:08)
[2024-07-17] MEDS ORDERED: ACETAMINOPHEN 325 MG TAB PO PRN (23:21)
[2024-07-17] MEDS: METOPROLOL TARTRATE 1 MG/ML VIAL IV STA (23:51)
[2024-07-18] MEDS: METOPROLOL TARTRATE 1 MG/ML VIAL IV STA ×3 (00:26→22:56)
[2024-07-18] MEDS ORDERED: STAT IV Infusion **Titration per Protocol STA (01:46)
[2024-07-18] MEDS: dilTIAZem HCl 5 MG/ML 5 ML VIAL IV STA (02:10)
[2024-07-18] MEDS: dilTIAZem HCL 125 MG in DEXTROSE 5% 100 ML IV SCH (02:15)
--- NOTE | 2024-07-18 05:29 | Communication Note ---
Date of Service: July 18, 2024 ~11:30PM notified by nursing that pt had arrived on the floor and her HR increased from 70s to 130s sustained. Pt had previously received 15 mg diltiazem IV and 25mg metoprolol PO. Pt was then given 5 mg metoprolol IV. ~12:30AM nursing relayed that pt's HR remained 110s-120s. A second dose of metoprolol 5 mg IV ordered. ~1:45AM HR remained sustained above 110 (mostly 130s). Dilt drip w/ 10mg IV bolus ordered. Pt's HR decreased to 70-80s. Pt remains on dilt drip. Resident Activity Tracking Resident Involvement: Resident Care Provided Care Provided: Adult Hospital Medicine
[2024-07-18] MEDS: LEVOTHYROXINE SODIUM 100 MCG TABLET PO SCH (06:04)
[2024-07-18 06:50] LABS: Troponin I High Sensitivity 18.5 pg/ml (0-14)
[2024-07-18 06:59] LABS: Thyroid Stimulating Hormone 5.717 uIu/ml (0.300-4.500)
--- NOTE | 2024-07-18 07:06 | XRay Report ---
XR chest 1V portable CLINICAL HISTORY: Chest pain, nonspecific COMPARISON STUDY: Chest radiograph April 23, 2024. FINDINGS: There is no pneumothorax. No definite pleural effusions are present. There is moderate card iomegaly with mild interstitial thickening. Minimal bibasilar opacities are present. IMPRESSION: 1. Cardiomegaly with mild interstitial pulmonary edema. 2. Minimal bibasilar opacities which favor atelectasis. An infectious process could appear similar al though is considered less likely. ACT 112: Negative or not required by law. Electronically signed by: Bakari Epps M.D. 07/18/2024 7:04 AM
[2024-07-18 07:34] LABS: T4 Free Thyroxine 1.55 ng/dl (0.61-1.60)
[2024-07-18] MEDS: MEMANTINE HCL 5 MG TAB PO SCH (08:12)
[2024-07-18] MEDS: METOPROLOL SUCC 25MG EXT REL TAB PO SCH (08:12)
[2024-07-18] MEDS ORDERED: APIXABAN 2.5 MG TAB PO SCH (09:00)
--- NOTE | 2024-07-18 12:32 | Cardiology Consultation ---
Date of Consultation July 18, 2024 Assessment & Plan (1) Atrial flutter with rapid ventricular response: Plan 1. Atrial flutter: She does seem to have an organized atrial arrhythmia. She has had different atrial arrhythmias in the past. She had previously undergone ablation through the cavotricuspid isthmus as well as a pulmonary vein isolation. However, it is very likely that her current flutter is not isthmus- dependent. She has episodes of paroxysmal atrial fibrillation documented previously as well. Her symptoms associated with the arrhythmia is unclear. Unfortunately, she appears to be a poor historian. It is possible that she had some symptoms of dyspnea with her elevated ventricular rates. She wore an outpatient monitor through [facility] recently. This appears to be for 14 days. She had 100% atrial flutter during the monitoring period. Average heart rate was 106 bpm. At this point I think we will concentrate on more aggressive rate control. Continue systemic anticoagulation. History of Present Illness Reason for Consultation: Atrial flutter Attending Physician: Joe Lemus History of Present Illness The patient is an 84-year-old woman with a history of atrial arrhythmias including atrial fibrillation and atrial flutter who was brought to the hospital for concerns of breathing difficulty. The patient suffers from dementia and her provided initial history upon presentation. She underwent initial therapy in the emergency room with some improvement in the heart rate. However, her heart rates increased after arriving on the [place]. Diltiazem infusion was initiated for better rate control. Patient seen as some difficulty recalling events leading up to her hospitalization. She does report some dyspnea at times specifically when shopping for groceries. She reports being quite sedentary. She is not able to give much additional history or endorse any additional symptoms. Allergies Allergy/AdvReac Type Severity Reaction Status Date / Time sesame seed Allergy Severe Anaphylaxis Verified 01/19/24 11:26 Home Medications Medication Instructions Recorded Confirmed Type calcium 600 mg (as 1 cap PO QAM 01/28/19 03/11/24 History carbonate)-vitamin D3 5 mcg (200 unit) capsule (Calcium 600 + D(3)) multivitamin 1 tab PO QAM 01/28/19 03/11/24 History acetaminophen 500 mg tablet 1,000 mg PO UD PRN Pain 02/17/20 03/11/24 History (Tylenol Extra Strength) Prevagen 1 dose PO QAM 11/17/22 03/11/24 History levothyroxine 100 mcg tablet 100 mcg PO DAILY 06/12/23 07/17/24 History safety needles 25 gauge x 1" (BD #15 ea 11/02/23 03/11/24 Rx Eclipse) apixaban 2.5 mg tablet (Eliquis) 2.5 mg PO BID 03/11/24 07/17/24 History cyanocobalamin (vitamin B-12) 1,000 mcg subcut .COMPLEX 90 days 04/05/24 07/17/24 Rx 1,000 mcg/mL injection solution #10 mL memantine 5 mg tablet 5 mg PO BID 90 days #180 tabs 06/24/24 07/17/24 Rx metoprolol succinate 25 mg 25 mg PO BID 07/17/24 07/17/24 History tablet,extended release 24 hr Patient History Medical History PVT (paroxysmal ventricular tachycardia) Tricuspid regurgitation Non severe per cardio Kyphoscoliosis Sensorineural hearing loss (SNHL) of right ear with restricted hearing of left ear Tinnitus, bilateral Osteoporosis Raynauds phenomenon Shortness of breath [place]MAN per cardio records- chronic- pt euvolemic at 04/01/21 cardio visit "Likely due to documented pulmonary issues, with kyphoscoliosis and pectus, limiting chest cage expansion." PT REPORTS SOB IN HER HX, NO OTHER KNOWN LUNG PROBLEMS OTHER THAN EMPHYSEMA. SOB USUALLY NOT A PROBLEM OTHER THAN WITH THE CURRENT AFIB RHYTHM...REASON FOR UPCOMING PROCEDURE LBBB (left bundle branch block) Macular degeneration Mitral valve prolapse with MR- remains non severe per cardio records Emphysema lung Degenerative disc disease Hypothyroidism SVT (supraventricular tachycardia) HX SVT Atrial fibrillation DX LONG TIME AGO WITH AFIB/HX CARDIOVERSIONS on Eliquis; [facility] [place] cardio Surgical History History of cardioversion x6, most recent 11/2022, [facility] H/O varicose vein ligation History of total knee replacement LEFT 07/04/13 - MAC #3, ETT #7.0, HiLo Oral, Grade 1 View, Atraumatic DL X 1 History of total hip arthroplasty BILATERAL H/O bladder repair surgery Anterior and posterior colporrhaphy, uterine suspension w/ mesh History of Fanta fundoplication H/O bilateral inguinal hernia repair H/O umbilical hernia repair History of colonoscopy History of cataract surgery BILATERAL Family History Mother Emphysema of lung Osteoporosis Heart disease Father Hearing loss Heart disease Sister Lung cancer Daughter Breast cancer Denies family history of Ovarian cancer No family history of adverse response to anesthesia No family history of bleeding disorder Allergies Colorectal cancer Cancer Hypertension Uterine cancer Stroke Asthma Social History Smoking Status: Never smoker Second Hand Exposure: Yes (hx as child); Do You Dip or Chew Tobacco: No; Hx Alcohol Use: No Hx Substance Use: No Preferred Language: Belarusian Communication Ability: Effective Shredded Filler Machine Wrapper Layer Required: No Beliefs That Will Affect Care: None marital status: Current Living Situation: Spouse Feels Safe at Home: Yes Assistive Devices: Cane and Walker Review of Systems Review of Systems: Per HPI Physical Exam Physical Exam: She is alert and oriented to person. She did not appear to be familiar with her current situation of the reason she was admitted to the hospital. She answered all questions. HEENT: Sclerae are anicteric. Pupils are equal and reactive to light and accommodation. Extraocular movements were intact. Neuro: Cranial nerves intact Lungs: Lungs are clear to auscultation bilaterally. There are no rales wheezes or rhonchi. She has normal respiratory effort without use of accessory muscles. There is normal pulmonary excursion. Cardiac: The rhythm was irregular. S1 and S2 were normal. There are no murmurs on examination. The PMI was not markedly displaced on palpation. Extremities: Patient has bilateral radial pulses that are equal in intensity. There is no evidence cyanosis or clubbing. There was no evidence of significant peripheral edema bilaterally. Skin: There are no rashes noted on examination today. Results & Data Vital Signs (Past 12 Hours) Vital Signs Temp Pulse Pulse Resp BP BP BP 07/18/24 11:25 92 H 112/65 07/18/24 11:06 36.4 C L 87 90/50 L 07/18/24 10:31 93 H 96/51 L 07/18/24 09:45 82 102/62 07/18/24 09:01 102 H 107/71 07/18/24 08:21 101 H 101/63 07/18/24 07:40 36.4 C L 81 16 128/79 07/18/24 07:02 91 H 07/18/24 04:00 36.4 C L 79 18 101/76 07/18/24 02:50 81 105/75 07/18/24 02:10 108 H 104/50 L 07/18/24 00:58 131 H 112/80 07/18/24 00:26 124 H 119/83 07/18/24 00:26 124 H 119/83 07/18/24 00:06 120 H 108/76 Pulse Ox O2 Del Method 07/18/24 11:25 07/18/24 11:06 95 Room Air 07/18/24 10:31 07/18/24 09:45 07/18/24 09:01 07/18/24 08:21 07/18/24 07:40 94 Room Air 07/18/24 07:02 07/18/24 04:00 95 Room Air 07/18/24 02:50 07/18/24 02:10 07/18/24 00:58 07/18/24 00:26 07/18/24 00:26 07/18/24 00:06 Laboratory Results Abnormal Lab Results 07/17/24 07/17/24 07/17/24 20:02 20:04 20:15 WBC 6.87 RBC 4.83 Hgb 15.2 POC Hgb 15.6 Hct 45.7 POC Hct 46 MCV 94.6 MCH 31.5 MCHC 33.3 RDW Std Deviation 48.6 H RDW Coeff of Amy 13.9 Plt Count 208 MPV 10.0 Immature Gran % (Auto) 0.6 Neut % (Auto) 61.2 Lymph % (Auto) 30.9 Maries % (Auto) 5.1 Eos % (Auto) 1.3 Baso % (Auto) 0.9 Neut # (Auto) 4.21 Lymph # (Auto) 2.12 Maries # (Auto) 0.35 Eos # (Auto) 0.09 Baso # (Auto) 0.06 Immature Gran # (Auto) 0.04 PT 11.1 INR 1.0 APTT 28 PTT Ratio 1.0 POC Sodium 137 Sodium 135 L POC Potassium 4.3 Potassium 4.3 POC Chloride 105 Chloride 106 Carbon Dioxide 21 POC Total CO2 20 L Anion Gap 8 POC Anion Gap 18.0 POC BUN 22 H BUN 22 Creatinine 1.01 POC Creatinine 1.1 Est Cr Clr Drug Dosing 41.0 eGFR 55.24 BUN/Creatinine Ratio 21.8 H Glucose 135 H POC Glucose (other) 140 H Lactate 2.3 H* Calcium 9.0 POC Ioniz Calcium Fausto 1.12 Magnesium 1.9 Troponin I High Sens 16.0 H Lipase 10 L TSH Free T4 Urine Color Yellow Urine Appearance Clear Urine pH 5.5 Ur Specific [place] 1.018 Urine Protein Negative Urine Glucose (UA) Negative Urine Ketones Negative Urine Blood Negative Urine Nitrite Negative Urine Bilirubin Negative Urine Urobilinogen Negative Ur Leukocyte Esterase 2+ H Urine WBC (Auto) 0-5 Urine RBC (Auto) 0-2 U Hyaline Cast (Auto) 0-2 U Epithel Cells (Auto) 3-5 H Urine Bacteria (Auto) None Seen 07/17/24 07/18/24 21:23 06:05 WBC RBC Hgb POC Hgb Hct POC Hct MCV MCH MCHC RDW Std Deviation RDW Coeff of Amy Plt Count MPV Immature Gran % (Auto) Neut % (Auto) Lymph % (Auto) Maries % (Auto) Eos % (Auto) Baso % (Auto) Neut # (Auto) Lymph # (Auto) Maries # (Auto) Eos # (Auto) Baso # (Auto) Immature Gran # (Auto) PT INR APTT PTT Ratio POC Sodium Sodium POC Potassium Potassium POC Chloride Chloride Carbon Dioxide POC Total CO2 Anion Gap POC Anion Gap POC BUN BUN Creatinine POC Creatinine Est Cr Clr Drug Dosing eGFR BUN/Creatinine Ratio Glucose POC Glucose (other) Lactate 1.7 Calcium POC Ioniz Calcium Fausto Magnesium Troponin I High Sens 18.5 H Lipase TSH 5.717 H Free T4 1.55 Urine Color Urine Appearance Urine pH Ur Specific [place] Urine Protein Urine Glucose (UA) Urine Ketones Urine Blood Urine Nitrite Urine Bilirubin Urine Urobilinogen Ur Leukocyte Esterase Urine WBC (Auto) Urine RBC (Auto) U Hyaline Cast (Auto) U Epithel Cells (Auto) Urine Bacteria (Auto) PG Care Time/CCT Total # of Minutes Spent Total Time Spent with Patient: Total time spent is greater than 50% in coordination of care (as documented) at patient's floor/unit and/or counseling patient: Coding Level of Care Code 15889 INT INP/OBS CARE 3/75MIN Diagnoses Atrial flutter with rapid ventricular response I48.92
[2024-07-18] MEDS: dilTIAZem HCL 30 MG TAB PO SCH (12:33)
--- NOTE | 2024-07-18 15:04 | Electrocardiogram Report ---
Test Reason : Blood Pressure : */* mmHG Vent. Rate : 137 BPM Atrial Rate : 277 BPM P-R Int : * ms QRS Dur : 124 ms QT Int : 354 ms P-R-T Axes : * -77 109 degrees QTcB Int : 534 ms Atrial flutter with variable A-V block with premature ventricular or aberrantly conducted complexes Left axis deviation Left bundle branch block Abnormal ECG When compared with ECG of 23-Apr-2024 09:50, Atrial flutter has replaced Sinus rhythm Left bundle branch block has replaced Right bundle branch block Confirmed by Joaquin Chicas ([id number]) on 07/18/2024 3:03:58 PM Referred By: REFERRED SELF Confirmed By: Joaquin Chicas
--- NOTE | 2024-07-18 22:54 | Hospitalist Progress Note ---
Date of Service July 18, 2024 Assessment & Plan (1) Atrial flutter with rapid ventricular response: Plan: Patient presented in atrial flutter with RVR, rate of 136 bpm, symptomatic with shortness of breath. Given Diltiazem 25mg IV with improvement in heart rate - presently 76bpm. Patient is anticoagulated on Apixaban and reports being compliant with her medications. SOB earlier today associated with patient's elevated heart rate. Otherwise she denies chest pain, palpitations, dizziness, syncope or signs/symptoms of heart failure. Recent outpatient user experience developer revealed 100% atrial flutter. Patient is scheduled to see Cardiology at [facility] [place] on [place]/02/24 -Observation to medical with telemetry -Continue Apixaban 2.5mg po BID - PM dose ordered for the ER -Continue metoprolol 25mg po BID - PM dose ordered for the ER. Patient's heart rate remains elevated on 07/18 Symptoms of fatigue may be due to elevated heart rate, will continue aggressive rate control. Plan Chronic Medical Conditions: Hypothyroidism - patient on Synthroid 100mcg po daily -Check TSH with AM labs -Continue Synthroid Dementia - patient is able to answer questions but is slow to respond and does not recall a lot of details of events prior to arrival -Delirium prevention strategies -Continue Namenda F/E/N - Saline lock. Electrolytes WNL. Regular diet as tolerated PPx - On Apixaban for AF Code - Full per discussion with patient Dispo - Observation to medical with telemetry Admission and Anticipated Discharge Date Admission Date: July 17, 2024 Subjective 84 yo female reports no new symtpoms. She just feels fatigued and tired. Review of Systems Review of Systems: All systems reviewed & are unremarkable except as noted in HPI & below Physical Exam Physical Exam: General: patient resting comfortably, NAD, non-toxic in appearance Heart: +S1/S2, fairly tachycardic Lungs: equal air entry bilaterally, no rales/rhonchi/wheezes Results & Data Results & Data Vital Signs (Past 12 Hours) Vital Signs Temp Pulse Pulse Resp BP BP BP 07/18/24 22:23 36.5 C 110 H 14 100/67 07/18/24 22:06 113 H 100/67 07/18/24 21:51 145 H 116/85 07/18/24 19:23 36.4 C L 121 H 14 109/77 07/18/24 15:45 36.5 C 119 H 16 105/71 07/18/24 14:59 93 H 07/18/24 12:30 113 H 136/66 07/18/24 11:25 92 H 112/65 07/18/24 11:06 36.4 C L 87 90/50 L Pulse Ox O2 Del Method 07/18/24 22:23 94 Room Air 07/18/24 22:06 07/18/24 21:51 07/18/24 19:23 95 Room Air 07/18/24 15:45 95 Room Air 07/18/24 14:59 07/18/24 12:30 07/18/24 11:25 07/18/24 11:06 95 Room Air PG Care Time/CCT Total # of Minutes Spent Total Time Spent with Patient: Total time spent is greater than 50% in coordination of care (as documented) at patient's floor/unit and/or counseling patient: Coding Level of Care Code 03192 SUB INP/OBS CARE 2/35MIN Diagnoses Atrial flutter with rapid ventricular response I48.92
[2024-07-19] MEDS ORDERED: STAT IV Infusion **Titration per Protocol STA (00:09)
--- NOTE | 2024-07-19 00:11 | Communication Note ---
Date of Service: July 19, 2024 Notified ~8:45PM that pt was confused and anxious, wanting to go home. Her family was at bedside as she had texted them to come to the hospital. Her HR was 130-140s at that time, although pt voiced no noticeable symptoms. Upon chart review, pt had PO metoprolol 25mg and PO cardizem 30mg ~8PM- her dilt drip had been stopped ~12:30PM. No hospitalist note available to review at that time, although cardiology note stated the plan was to concentrate on aggressive rate control. I discussed the pt's HR and need for continued hospitalization with her and her family at bedside. All were agreeable that pt should remain hospitalized for further treatment of her HR. I relayed to nursing to watch the pt's HR over the next hour to determine if this tachycardia would be sustained. ~9:45PM: Nursing notified that pt's HR remained 130-140s. Ordered metoprolol 5mg IV. ~10:45PM: Nursing noted pt's HR 110-130s, BP 100/67. Ordered another dose of metoprolol 5 mg IV. ~11:30PM: Pt's HR 90-110s, BP 98/64. No medication ordered d/t slight improvement. Discussed with nursing to monitor pt for another 30 minutes. ~Midnight: Pt's HR climbing back up to 110-130s, BP 109/78. Due to pt's refractory HR to multiple doses of PO and IV medications, a dilt drip was ordered with a 10 mg IV bolus. ~1:30AM: Pt's HR down to 70-90s, BP 112/78. Pt will remain on dilt drip. Resident Activity Tracking Resident Involvement: Resident Care Provided Care Provided: Adult [facility] Medicine
[2024-07-19] MEDS: dilTIAZem HCl 5 MG/ML 5 ML VIAL IV STA (00:21)
[2024-07-19] MEDS: dilTIAZem HCL 125 MG in DEXTROSE 5% 100 ML IV SCH (00:29)
[2024-07-19 05:54] LABS: Hemoglobin 14.7 g/dl (12.0-16.0); Mean Corpuscular Hemoglobin 31.1 pg (25.0-34.0); Mean Corpuscular Hgb Conc 32.7 g/dL (32.0-36.0); Mean Corpuscular Volume 95.1 fL (80.0-100.0); Mean Platelet Volume 10.2 fL (9.4-12.4); Platelet Count 196 K/uL (130-400); RDW Coefficient of Variation 13.7 % (11.5-14.5); RDW Standard Deviation 48.1 fL (36.4-46.3); Red Blood Count 4.73 M/uL (4.20-5.40)
[2024-07-19 05:57] LABS: Calcium 8.3 mg/dl (8.6-10.3); Potassium 4.3 mmol/L (3.5-5.1)
[2024-07-19 06:03] LABS: BUN Creatinine Ratio 23.5 (10-20); Creatinine Clr Calc Pharmacy 40.6 ml/min
--- NOTE | 2024-07-19 13:47 | Cardiology Progress Note ---
Date of Service July 19, 2024 Assessment & Plan (1) Atrial flutter with rapid ventricular response: Plan 1. Atrial flutter: Rate control appears to be improved with the addition of diltiazem. We can increase the dose slightly to 60 mg every 8 hours. If her rates are reasonably controlled diltiazem and metoprolol can be switched to a long-acting formulation. If she is ambulatory rates appear reasonably controlled she can be discharged home with outpatient follow-up. She follows with [facility] electrophysiology regarding her current arrhythmia and can be seen by them in the outpatient setting subsequent to discharge. I will be away from the hospital for the next 2 days. If there are questions regarding her cardiac condition please contact the on-call [facility] trekking guide Admission and Anticipated Discharge Date Admission Date: July 18, 2024 Subjective This morning the patient clinically feeling well. She reported being ambulatory to the bathroom and back. Perhaps a mild dyspnea and some mild dizziness, but overall well-tolerated. No chest pain. No sense of palpitations currently. Anxious for discharge. Review of Systems Review of Systems: Per HPI Physical Exam Physical Exam: She is alert and oriented to person. She answer questions appropriately. HEENT: Sclerae are anicteric. Pupils are equal and reactive to light and accommodation. Extraocular movements were intact. Neuro: Cranial nerves intact Lungs: Lungs are clear to auscultation bilaterally. There are no rales wheezes or rhonchi. She has normal respiratory effort without use of accessory muscles. There is normal pulmonary excursion. Cardiac: The rhythm was irregular. S1 and S2 were normal. There are no murmurs on examination. The PMI was not markedly displaced on palpation. Extremities: Patient has bilateral radial pulses that are equal in intensity. There is no evidence cyanosis or clubbing. There was no evidence of significant peripheral edema bilaterally. Skin: There are no rashes noted on examination today. Results & Data Vital Signs (Past 12 Hours) Vital Signs Temp Pulse Resp BP BP Pulse Ox O2 Del Method 07/19/24 11:27 35.8 C L 95 H 18 112/71 94 Room Air 07/19/24 08:36 85 07/19/24 07:50 36.7 C 90 18 111/70 93 Room Air 07/19/24 03:28 36.3 C L 83 16 116/72 94 Room Air Laboratory Results Abnormal Lab Results 07/19/24 05:27 WBC 7.30 RBC 4.73 Hgb 14.7 Hct 45.0 MCV 95.1 MCH 31.1 MCHC 32.7 RDW Std Deviation 48.1 H RDW Coeff of Amy 13.7 Plt Count 196 MPV 10.2 Sodium 136 Potassium 4.3 Chloride 110 H Carbon Dioxide 18 L Anion Gap 8 BUN 24 H Creatinine 1.02 Est Cr Clr Drug Dosing 40.6 eGFR 54.59 BUN/Creatinine Ratio 23.5 H Glucose 91 Calcium 8.3 L PG Care Time/CCT Total # of Minutes Spent Total Time Spent with Patient: Total time spent is greater than 50% in coordination of care (as documented) at patient's floor/unit and/or counseling patient: Coding Level of Care Code 54810 SUB INP/OBS CARE 235MIN Diagnoses Atrial flutter with rapid ventricular response I48.92
[2024-07-19] MEDS: dilTIAZem HCL 30 MG TAB PO ONE (14:03)
[2024-07-19] MEDS: dilTIAZem HCl 60 MG TAB PO SCH (20:16)
--- NOTE | 2024-07-20 10:31 | Hospitalist Progress Note ---
Date of Service July 19, 2024 Assessment & Plan (1) Atrial flutter with rapid ventricular response: Plan: Patient presented in atrial flutter with RVR, rate of 136 bpm, symptomatic with shortness of breath. Given Diltiazem 25mg IV with improvement in heart rate - presently 76bpm. Patient is anticoagulated on Apixaban and reports being compliant with her medications. SOB earlier today associated with patient's elevated heart rate. Otherwise she denies chest pain, palpitations, dizziness, syncope or signs/symptoms of heart failure. Recent outpatient laboratory monitor revealed 100% atrial flutter. Patient is scheduled to see Cardiology at [facility] [place] on 08/02/24 -Observation to medical with telemetry -Continue Apixaban 2.5mg po BID - PM dose ordered for the ER -Continue metoprolol 25mg po BID - PM dose ordered for the ER. Patient's heart rate remains elevated on 07/18 Symptoms of fatigue may be due to elevated heart rate, will continue aggressive rate control. Increased diltiazem PO to 60 mg PO q8h. will hold off diltiazem drip. Plan Chronic Medical Conditions: Hypothyroidism - patient on Synthroid 100mcg po daily -Check TSH with AM labs -Continue Synthroid Dementia - patient is able to answer questions but is slow to respond and does not recall a lot of details of events prior to arrival -Delirium prevention strategies -Continue Namenda F/E/N - Saline lock. Electrolytes WNL. Regular diet as tolerated PPx - On Apixaban for AF Code - Full per discussion with patient Dispo - Observation to medical with telemetry Admission and Anticipated Discharge Date Admission Date: July 18, 2024 Subjective 84 yo female reports no new symptoms. Review of Systems Review of Systems: All systems reviewed & are unremarkable except as noted in HPI & below Physical Exam Physical Exam: General: patient resting comfortably, NAD, non-toxic in appearance Heart: +S1/S2, fairly tachycardic Lungs: equal air entry bilaterally, no rales/rhonchi/wheezes Results & Data Results & Data Vital Signs (Past 12 Hours) Vital Signs Temp Pulse Pulse Resp BP BP Pulse Ox 07/20/24 07:12 36.6 C 120 H 18 120/90 92 07/20/24 02:50 36.8 C 84 16 109/69 94 07/19/24 23:20 95 H 07/19/24 22:36 36.5 C 90 16 93/65 L 96 O2 Del Method 07/20/24 07:12 Room Air 07/20/24 02:50 Room Air 07/19/24 23:20 07/19/24 22:36 Room Air PG Care Time/CCT Total # of Minutes Spent Total Time Spent with Patient: Total time spent is greater than 50% in coordination of care (as documented) at patient's floor/unit and/or counseling patient: Coding Level of Care Code 04306 SUB INP/OBS CARE 2/35MIN Diagnoses Atrial flutter with rapid ventricular response I48.92
[2024-07-20] MEDS: dilTIAZem HCl 5 MG/ML 5 ML VIAL IV STA (22:28)
--- NOTE | 2024-07-21 08:15 | Hospitalist Progress Note ---
Date of Service July 20, 2024 Assessment & Plan (1) Atrial flutter with rapid ventricular response: Plan: Patient presented in atrial flutter with RVR, rate of 136 bpm, symptomatic with shortness of breath. Given Diltiazem 25mg IV with improvement in heart rate - presently 76bpm. Patient is anticoagulated on Apixaban and reports being compliant with her medications. SOB earlier today associated with patient's elevated heart rate. Otherwise she denies chest pain, palpitations, dizziness, syncope or signs/symptoms of heart failure. Recent outpatient heel molder revealed 100% atrial flutter. Patient [place] [facility] [place]Observation to medical with telemetry -Continue Apixaban 2.5mg po BID - PM dose ordered for the ER -Continue metoprolol 25mg po BID - PM dose ordered for the ER. Patient's heart rate remains elevated on 07/18 Symptoms of fatigue may be due to elevated heart rate, will continue aggressive rate control. Increased diltiazem PO to 60 mg PO q8h. HR remains elevated, no signs of dehydration, will recommend increae oral intake to help with tachycardia. Plan Chronic Medical Conditions: Hypothyroidism - patient on Synthroid 100mcg po daily -Check TSH with AM labs -Continue Synthroid Dementia - patient is able to answer questions but is slow to respond and does not recall a lot of details of events prior to arrival -Delirium prevention strategies -Continue Namenda F/E/N - Saline lock. Electrolytes WNL. Regular diet as tolerated PPx - On Apixaban for AF Code - Full per discussion with patient Dispo - Observation to medical with telemetry Admission and Anticipated Discharge Date Admission Date: July 18, 2024 Subjective Patient reports no new symptoms. She wants to go home. Review of Systems Review of Systems: All systems reviewed & are unremarkable except as noted in HPI & below Physical Exam Physical Exam: General: patient resting comfortably, NAD, non-toxic in appearance Heart: +S1/S2, fairly tachycardic Lungs: equal air entry bilaterally, no rales/rhonchi/wheezes Results & Data Results & Data Vital Signs (Past 12 Hours) Vital Signs Temp Pulse Pulse Resp BP BP Pulse Ox 07/21/24 07:10 36.4 C L 124 H 18 112/76 95 07/21/24 03:13 36.3 C L 85 16 103/67 95 07/20/24 22:52 124 H 07/20/24 22:15 36.8 C 126 H 16 110/46 L 94 O2 Del Method 07/21/24 07:10 Room Air 07/21/24 03:13 Room Air 07/20/24 22:52 07/20/24 22:15 Room Air PG Care Time/CCT Total # of Minutes Spent Total Time Spent with Patient: Total time spent is greater than 50% in coordination of care (as documented) at patient's floor/unit and/or counseling patient: Coding Level of Care Code 90252 SUB INP/OBS CARE 2/35MIN Diagnoses Atrial flutter with rapid ventricular response I48.92
--- NOTE | 2024-07-21 09:37 | Cardiology Progress Note ---
Date of Service July 20, 2024 Assessment & Plan (1) Atrial fibrillation with rapid ventricular response: (2) Emphysema lung: Plan Will order an echo on her to assess her LV function given the left bundle branch block. She does not appear to be in congestive heart failure at this time however I think an assessment of her ejection fraction would be appropriate. Her last echo done was approximately 3 years ago. This may help to guide further medical management to control her heart rate. After I reviewed her echo tomorrow I will make further recommendations. Admission and Anticipated Discharge Date Admission Date: July 18, 2024 Subjective I was asked to reevaluate Mrs. Clark due to heart rate elevation when she gets out of bed. She has been in atrial fibrillation which is reasonably well- controlled at rest while seated in bed but her heart rate was increasing with activity. She appears to be in no apparent distress. She is unaware of her heart rate. She is comfortable. Review of Systems Review of Systems: All systems reviewed & are unremarkable except as noted in HPI & below Physical Exam Neck: No JVD was present Respiratory: Lungs are diminished at the the bases but are otherwise clear to auscultation Cardiovascular: Heart is irregular in A-fib there were no murmurs appreciated Results & Data Vital Signs (Past 12 Hours) Vital Signs Temp Pulse Resp BP BP Pulse Ox O2 Del Method 07/20/24 15:23 36.7 C 97 H 18 116/79 94 Room Air 07/20/24 11:09 36.6 C 123 H 18 104/70 97 Room Air 07/20/24 07:12 36.6 C 120 H 18 120/90 92 Room Air ECG Additional Comments: EKG shows atrial fibrillation with rapid ventricular response there is a left bundle branch block leftward axis the EKG is from July 15
[2024-07-21 11:49] LABS: Hematocrit (blood only) 44.2 % (37.0-47.0); Hemoglobin 14.8 g/dl (12.0-16.0); Mean Corpuscular Hgb Conc 33.5 g/dL (32.0-36.0); Mean Corpuscular Volume 92.7 fL (80.0-100.0); Mean Platelet Volume 9.9 fL (9.4-12.4); Platelet Count 209 K/uL (130-400); RDW Coefficient of Variation 13.8 % (11.5-14.5); RDW Standard Deviation 47.1 fL (36.4-46.3); Red Blood Count 4.77 M/uL (4.20-5.40); White Blood Count 8.08 K/ul (4.8-10.8)
[2024-07-21 12:06] LABS: Calcium 8.7 mg/dl (8.6-10.3); Creatinine Clr Calc Pharmacy 51.3 ml/min; Magnesium 1.9 mg/dl (1.7-2.4); Phosphorus 4.1 mg/dl (2.5-4.9); Potassium 4.5 mmol/L (3.5-5.1)
--- NOTE | 2024-07-21 12:52 | Cardiology Progress Note ---
Date of Service July 21, 2024 Assessment & Plan (1) Rheumatic mitral valve disease: (2) Atrial fibrillation with rapid ventricular response: (3) Emphysema lung: Plan Given her previous history of A-fib ablation as well as multiple attempts at cardioversion I suspect that she will be maintained in atrial fibrillation. Rate control is probably our best option. I would ask that her primary comb machine operator go back and review her previous echoes as well because there does appear to be mild LV dysfunction on this study which was not previously noted. She may do better with trying to maximize the dose of beta-jennifer as long as her blood pressure tolerates this. In addition she may benefit from ROSA inhibitor regarding the LV dysfunction. I am going to cut back on the dose of her diltiazem and increase the metoprolol dose at this time. She will be maintained on her Eliquis for stroke prevention. Admission and Anticipated Discharge Date Admission Date: July 18, 2024 Subjective I was asked to reevaluate Mrs. Clark due to heart rate elevation when she gets out of bed. She has significant dementia with memory loss and additional history is obtained by family her and children who are at the bedside. She has a history of A-fib ablation several years ago along with multiple cardioversions. I am not sure if she has been on antiarrhythmic arrhythmics in the past. She seems to be completely asymptomatic with regard to her A-fib. Echo was done today which shows mild LV dysfunction with global hypokinesis along with dyskinesis of the septum c/w BBB. Her mitral valve also appears to have classic doming especially of the anterior MV leaflet. I do NOT appreciate MVP which was noted in previous studies. The MV was not described as RHD but reviewing the last study there is classic doming. The RA is severely enlarged. HR controlled at rest while seated in bed but her heart rate was increasing with activity. She appears to be in no apparent distress. She is unaware of her heart rate. She is comfortable. Review of Systems Review of Systems: All systems reviewed & are unremarkable except as noted in HPI & below Physical Exam Physical Exam: Awake alert oriented poor historian Respiratory: Lungs clear to auscultation bilaterally Cardiovascular: Irregular heart rate MS not appreciated Results & Data Vital Signs (Past 12 Hours) Vital Signs Temp Pulse Pulse Resp BP BP Pulse Ox 07/21/24 11:52 36.6 C 100 H 18 99/69 L 94 07/21/24 08:00 116 H 07/21/24 07:10 36.4 C L 124 H 18 112/76 95 07/21/24 03:13 36.3 C L 85 16 103/67 95 O2 Del Method 07/21/24 11:52 Room Air 07/21/24 08:00 07/21/24 07:10 Room Air 07/21/24 03:13 Room Air Laboratory Results Abnormal lab results 07/21/24 Range/Units 11:35 RDW Std Deviation 47.1 H (36.4-46.3) fL Sodium 134 L (136-145) mmol/L BUN/Creatinine Ratio 25.0 H (10-20) Glucose 100 H (70-99(Fasting)) mg/dl Medications Administered Current Inpatient Medications Acetaminophen (Acetaminophen 325 Mg Tab) 650 mg PO Q4H PRN PRN Reason: pain/fever Stop: 08/16/24 23:20 Apixaban (Apixaban 2.5 Mg Tab) 2.5 mg PO BID JOSE JUAN Stop: 08/16/24 21:44 Last Admin: 07/21/24 07:36 Dose: 2.5 mg Diltiazem HCl (Diltiazem Hcl 60 Mg Tab) 60 mg PO TID JOSE JUAN Stop: 08/18/24 20:59 Last Admin: 07/21/24 13:24 Dose: 60 mg Levothyroxine Sodium (Levothyroxine Sodium 100 Mcg Tablet) 100 mcg PO DAILYBB JOSE JUAN Stop: 08/17/24 06:29 Last Admin: 07/21/24 06:11 Dose: 100 mcg Memantine (Memantine Hcl 5 Mg Tab) 5 mg PO BID JOSE JUAN Stop: 08/17/24 08:59 Last Admin: 07/21/24 07:35 Dose: 5 mg Metoprolol Succinate (Metoprolol Succ 25mg Ext Rel Tab) 25 mg PO BID JOSE JUAN Stop: 08/17/24 08:59 Last Admin: 07/21/24 07:35 Dose: 25 mg
--- NOTE | 2024-07-21 17:37 | Electrocardiogram Report ---
Test Reason : Blood Pressure : */* mmHG Vent. Rate : 90 BPM Atrial Rate : 147 BPM P-R Int : * ms QRS Dur : 126 ms QT Int : 424 ms P-R-T Axes : * -61 120 degrees QTcB Int : 518 ms Atrial flutter Left axis deviation Left bundle branch block Abnormal ECG When compared with ECG of 17-Jul-2024 20:01, No significant change was found Confirmed by Danii Mancuso ([place]) on 07/21/2024 5:37:08 PM Referred By: REFERRED SELF Confirmed By: Danii Mancuso
--- NOTE | 2024-07-21 18:04 | Hospitalist Progress Note ---
Date of Service July 21, 2024 Assessment & Plan (1) Atrial flutter with rapid ventricular response: Plan: Metabolic encephalopathy Due to altered cerebral perfusion in setting of atrial flutter with RVR Patient presented in atrial flutter with RVR, rate of 136 bpm, symptomatic with shortness of breath. Given Diltiazem 25mg IV with improvement in heart rate - presently 76bpm. Patient is anticoagulated on Apixaban and reports being compliant with her medications. SOB earlier today associated with patient's elevated heart rate. Otherwise she denies chest pain, palpitations, dizziness, syncope or signs/symptoms of heart failure. Recent outpatient surveillance monitor revealed 100% atrial flutter. Patient is scheduled to see Cardiology at [facility] on 08/02/24 -Adm to medical with telemetry -Continue Apixaban 2.5mg po BID - PM dose ordered for the ER -Continue metoprolol 25mg po BID - PM dose ordered for the ER. Patient's heart rate remains elevated on 07/18 Symptoms of fatigue may be due to elevated heart rate, will continue aggressive rate control. Increased Metoprolol to 75 mg BID decreased diltiazem to 30 mg TID Plan Chronic Medical Conditions: Hypothyroidism - patient on Synthroid 100mcg po daily -Check TSH with AM labs -Continue Synthroid Dementia - patient is able to answer questions but is slow to respond and does not recall a lot of details of events prior to arrival -Delirium prevention strategies -Continue Namenda F/E/N - Saline lock. Electrolytes WNL. Regular diet as tolerated PPx - On Apixaban for AF Code - Full per discussion with patient Dispo - Observation to medical with telemetry Admission and Anticipated Discharge Date Admission Date: July 18, 2024 Subjective Patient reports no new symptoms. Physical Exam Physical Exam: General: patient resting comfortably, NAD, non-toxic in appearance Heart: +S1/S2, fairly tachycardic Lungs: equal air entry bilaterally, no rales/rhonchi/wheezes Results & Data Results & Data Vital Signs (Past 12 Hours) Vital Signs Temp Pulse Pulse Resp BP BP Pulse Ox 07/21/24 14:55 36.6 C 95 H 18 101/81 96 07/21/24 11:52 36.6 C 100 H 18 99/69 L 94 07/21/24 08:00 116 H 07/21/24 07:10 36.4 C L 124 H 18 112/76 95 O2 Del Method 07/21/24 14:55 Room Air 07/21/24 11:52 Room Air 07/21/24 08:00 07/21/24 07:10 Room Air PG Care Time/CCT Total # of Minutes Spent Total Time Spent with Patient: Total time spent is greater than 50% in coordination of care (as documented) at patient's floor/unit and/or counseling patient: Coding Level of Care Code 32500 SUB INP/OBS CARE 2/35MIN Diagnoses Atrial flutter with rapid ventricular response I48.92
[2024-07-21] MEDS: METOPROLOL TARTRATE 25 MG TAB PO SCH (21:09)
[2024-07-21] MEDS: dilTIAZem HCL 30 MG TAB PO SCH (21:09)
[2024-07-22] MEDS: dilTIAZem HCl 5 MG/ML 5 ML VIAL IV STA (00:16)
[2024-07-22 06:00] LABS: Hematocrit (blood only) 44.1 % (37.0-47.0); Hemoglobin 14.7 g/dl (12.0-16.0); Mean Corpuscular Hemoglobin 30.6 pg (25.0-34.0); Mean Corpuscular Hgb Conc 33.3 g/dL (32.0-36.0); Mean Corpuscular Volume 91.7 fL (80.0-100.0); Platelet Count 218 K/uL (130-400); RDW Coefficient of Variation 13.7 % (11.5-14.5); RDW Standard Deviation 46.5 fL (36.4-46.3); Red Blood Count 4.81 M/uL (4.20-5.40); White Blood Count 6.47 K/ul (4.8-10.8)
[2024-07-22 06:18] LABS: BUN Creatinine Ratio 16.8 (10-20); Calcium 9.1 mg/dl (8.6-10.3); Creatinine Clr Calc Pharmacy 36.3 ml/min; Potassium 4.6 mmol/L (3.5-5.1)
[2024-07-22 07:20] VITALS: RESP 19; O2SAT 96
[2024-07-22 11:16] VITALS: PULSE 101; TEMP 97.7
--- NOTE | 2024-07-22 13:21 | Discharge Summary ---
Discharge Summary Date of Service July 22, 2024 Principal Dx & Hospital Course #1 = Principal Diagnosis (1) Atrial flutter with rapid ventricular response: Patient presented in atrial flutter with RVR, rate of 136 bpm, symptomatic with shortness of breath and increased confusion. Otherwise she denies chest pain, palpitations, dizziness, syncope or signs/symptoms of heart failure. Initially was given Diltiazem 25mg IV with improvement in heart rate and then placed on increased doses of metoprolol and po diltiazem after weaned off dilt gtt ECHO with mid range EF 40-45%, rheumatic heart disease, and global hypokinesis of LV Recent outpatient cardiac technician revealed 100% atrial flutter Cardiology consult appreciated-plan for rate control strategy-rates improved with metoprolol 75mg po bid and dilt 30 mg po tid, however with reduced EF, prefer to eliminate diltiazem On discharge, continue Toprol XL 100mg po bid Continue Apixaban 2.5mg po BID Plan for repeat ECHO in future to see if EF improves with rate control (2) Metabolic encephalopathy: Metabolic encephalopathy Due to altered cerebral perfusion in setting of atrial flutter with RVR-resolved (3) Heart failure with mid-range ejection fraction: ECHO as above with EF 40-45%, likely from uncontrolled tachycardia Rate control as above, plan to repeat EHCO in future Toprol XL dose increased Hold off on ACEi/ARB at this time due to soft BPs. EF will likely improve w/ rate control-dedfer to outpt Cardiology to add GDMT if not improving (4) Rheumatic mitral valve disease: noted on ECHO Plan Chronic Medical Conditions: Hypothyroidism - patient on Synthroid 100mcg po daily -TSH here mildly elevated at 5, follow as outpt -Continue Synthroid Dementia - patient is able to answer questions but is slow to respond and does not recall a lot of details of events prior to arrival -Delirium prevention strategies -Continue Namenda DVT PPx - On Apixaban for AF Code - Full per discussion with patient Dispo - stable for dc to home Notes For Next Care Provider Needs close f/u with Cardiology, repeat ECHO Medication Changes From Visit Increased Toprol XL to 100mg po bid Admission HPI Per Admitting Provider Kavya Clark is an 84yo female with history of atrial fibrillation, hypothyroidism and dementia presenting with shortness of breath. History is provided by patient as well as patient's at bedside. Patient reports that she has not been feeling well for the last several days. Today she became more short of breath. and other family member at bedside reported that patient was "gasping for air" at one point. They checked her heart rate and found it to be elevated at 140bpm. Patient denies chest pain or palpitations. No dizziness, syncope or presyncope. No edema or orthopnea. No cough, fever or chills. Upon arrival to the ER patient found to be in atrial flutter with HR of 136. She was administered Cardizem 25mg IV with improvement in heart rate. Cardizem drip was ordered but was not initiated. Patient follows with Cardiology locally as well as at [facility]. She has a longstanding history of atrial fibrillation. She has had multiple cardioversions in the past (last 12/15/22). She had a pulmonary vein isolation and caval tricuspid isthmus ablation performed on 03/02/23. She did have some transient heart block following this procedure which resolved. She most recently had a Holter monitor for two weeks - results viewed tonight with assistance of resident director of environmental services. Study showed persistent atrial flutter 100% burden with variable block. Occasional rapid rates with 2:1 conduction and 0.2% PVCs. ER Course: Diltiazem 10mg IV + 15mg IV Discharge Exam Constitutional WD/WN, vitals as above Respiratory normal respiratory effort, lungs clear to auscultation Cardiovascular Rate/Rhythm: regular rate and + irregularly irregular Heart Sounds: no murmur Extremities: no edema Psychiatric Orientation: alert, oriented to person, oriented to place and cooperative Discharge Plan Discharge Items Patient Disposition: Home - Self-Care Reason For Visit: A FIB RVR Discharge Diagnosis: Rapid atrial flutter Heart failure with mid-range ejection fraction Condition on Discharge: Good Activity: As commented below Bathing: No limitations Exercise/Sports: As tolerated Non-emergency contact: Primary Care Provider and Plant Cytologist Call non-emergency contact if: you have any medication questions and your symptoms worsen Follow-up/Referrals: Joaquin Chicas MD [Physician] - (Please follow up with Dr. Chicas within 2 weeks) Joaquin Jordan MD [Primary Care Provider] - (Please follow up within 1-2 weeks) Diet: Low Sodium (2gm) Addtl Attending Provider Instructions: You were admitted with a rapid, irregular heart rhythm called atrial flutter. Your metoprolol dose was increased to 100mg twice a day to better control your heart rate. The strength of your heart is a bit decreased from normal and this is likely from the rapid heartbeat. Please follow up with Dr. Chicas within 2 weeks and he will repeat your echocardiogram in the future to see if the fu nction has improved. Call your Primary Care doctor if any of the following symptoms or problems start or get worse: * Shortness of breath or difficulty breathing * Wake up at night short of breath * Chest pain * Cough * Swelling of your hands, feet, or legs * More fatigued or tired with your normal activity * Palpitations - sudden fast heart beats WEIGHT * Weigh yourself every morning after using the bathroom. * Use the same scale. * Wear the same amount of clothing. * Write your weight down on a chart. * Call your Primary Care doctor if you gain more than 2-3 pounds in 1-2 days. MEDICATIONS * Use this discharge instruction sheet for medication instructions. * Take your medications at the time your doctor ordered. * Do not skip a dose of your medicines. * If you miss a dose of medicine, take it as soon as possible, but DO NOT DOUBLE A DOSE. * Read your medicine information when you get home. * Know all of the side effects of your medicine. If in doubt, ask your pharmacist * Call your Primary Care doctor's office if you have any side effects. * Be sure all of your doctors know what medicine and herbs you take (including cold, flu, and herbal medicine). Take the following with you to your follow-up doctor appointments: * Weight Chart * Medication List * List of questions Do not drink excessive alcohol, beer or wine. Pending Studies at Discharge: No Stand-Alone Forms: My [employer], Smoking Cessation Medications and DC Order Prescriptions: New metoprolol succinate [Toprol XL] 100 mg tablet extended release 24 hr 100 mg PO BID Qty: 60 0RF Continued cyanocobalamin (vitamin B-12) 1,000 mcg/mL solution 1,000 mcg subcut .COMPLEX 90 Days Qty: 10 1RF Rx Instructions: Inject 1 mL IM weekly for 4 weeks, then inject 1 mL IM once monthly thereafter. memantine 5 mg tablet 5 mg PO BID 90 Days Qty: 180 1RF levothyroxine 100 mcg tablet 100 mcg PO DAILY Prevagen 1 dose PO QAM (DME) BD Eclipse 25 gauge x 1" needle See Rx Instructions .Route Qty: 15 0RF Rx Instructions: As directed Eliquis 2.5 mg tablet 2.5 mg PO BID multivitamin Tablet 1 tab PO QAM Calcium 600 + D(3) 600 mg calcium- 200 unit Capsule 1 cap PO QAM acetaminophen [Tylenol Extra Strength] 500 mg tablet 1,000 mg PO UD PRN (Reason: Pain) Discontinued metoprolol succinate 25 mg tablet extended release 24 hr 25 mg PO BID Discharge Orders: Discharge Order- CHF (Routine); Ordered 07/22/24 Ordered By: Delmis Deluca Admission Data Admit Date/Time: 07/18/24 22:53 Attending Provider: Delmis Deluca Admit Provider: Tiffany Mohan Primary Care Provider: Joaquin Jordan Other Providers: Tiffany Mohan; Nathaniel Peres; Maciel Ziegler; Edwin Anthony; Gary Sanchez; Reg Shepherd; Kervin Oakley Jr; Mich Espino; Tatiana Manning; Temi Anderson; Joaquin Garland; Joaquin Chicas; Eric Hernandez; Chandni Sheffield; Markel Alfredo; Cori Chavira; Lit Patel; Markel Calvillo; Raphael Redd; David Kapoor Hospital Stay Data Consultations 07/17/24 21:03 ED Decision to Admit Stat 07/18/24 07:50 Consult Cardiology Routine Diagnostic Imagining Performed ECHO Pending Results Patient Have Any Pending Studies at Discharge: No Discharge Instructions Given to Patient (Per Discharging Provider) You were admitted with a rapid, irregular heart rhythm called atrial flutter. Your metoprolol dose was increased to 100mg twice a day to better control your heart rate. The strength of your heart is a bit decreased from normal and this is likely from the rapid heartbeat. Please follow up with Dr. Chicas within 2 weeks and he will repeat your echocardiogram in the future to see if the function has improved. Call your Primary Care doctor if any of the following symptoms or problems start or get worse: * Shortness of breath or difficulty breathing * Wake up at night short of breath * Chest pain * Cough * Swelling of your hands, feet, or legs * More fatigued or tired with your normal activity * Palpitations - sudden fast heart beats WEIGHT * Weigh yourself every morning after using the bathroom. * Use the same scale. * Wear the same amount of clothing. * Write your weight down on a chart. * Call your Primary Care doctor if you gain more than 2-3 pounds in 1-2 days. MEDICATIONS * Use this discharge instruction sheet for medication instructions. * Take your medications at the time your doctor ordered. * Do not skip a dose of your medicines. * If you miss a dose of medicine, take it as soon as possible, but DO NOT DOUBLE A DOSE. * Read your medicine information when you get home. * Know all of the side effects of your medicine. If in doubt, ask your pharmacist * Call your Primary Care doctor's office if you have any side effects. * Be sure all of your doctors know what medicine and herbs you take (including cold, flu, and herbal medicine). Take the following with you to your follow-up doctor appointments: * Weight Chart * Medication List * List of questions Do not drink excessive alcohol, beer or wine. Total Time Total Time Spent Total Time Spent (In Minutes): 35 min Total Time Includes: Examination of the Patient, Discharge Planning, Medication Reconciliation and Communication With Other Providers (Cardiology) Coding Level of Care Code 04669 INP/OBS DISCH >30 MIN Diagnoses Atrial flutter with rapid ventricular response I48.92 Metabolic encephalopathy G93.41 Heart failure with mid-range ejection fraction I50.22 Rheumatic mitral valve disease I05.9
[2024-07-22 13:48] VITALS: BP 103/64
== END 2024-07-22 14:27 | disposition home or self-care (01) | DRG 308 ==
LOC: 2S 19:42 → ED 19:42 → SUATTDRO 21:38 → 2S 22:57 → SUATTDRO 07-18 22:53

== ENCOUNTER 2025-08-04 12:18 | Observation (INO) ==
[2025-08-04 14:11] LABS: Hematocrit (blood only) 44.8 % (37.0-47.0); Hemoglobin 14.8 g/dL (12.0-16.0); Immature Granulocytes # (auto) 0.06 K/uL (0.01-0.20); Immature Granulocytes % (auto) 0.7 %; Mean Corpuscular Hemoglobin 33.0 pg (25.0-34.0); Mean Corpuscular Volume 99.8 fL (80.0-100.0); Platelet Count 260 K/uL (130-400); RDW Standard Deviation 50.6 fL (36.4-46.3); Red Blood Count 4.49 M/uL (4.20-5.40); White Blood Count 9.16 K/ul (4.8-10.8)
[2025-08-04 14:16] LABS: Appearance Urine Turbid (Clear); Bacteria Urine Automated 4+ (None Seen); Glucose Urine UA Negative (Negative); WBC Urine Automated >50 /hpf (0-5)
[2025-08-04 14:30] LABS: Alanine Aminotransferase 16.0 U/L (7-52); Albumin Globulin Ratio 1.1 (0.9-2); Albumin Level 4.1 gm/dl (3.4-5.0); Alkaline Phosphatase 86.0 U/L (34-104); Anion Gap 11.0 (3-11); Bilirubin,Total 0.9 mg/dl (0.2-1.0); Blood Urea Nitrogen 32.0 mg/dl (6-23); Calcium 9.5 mg/dl (8.6-10.3); Carbon Dioxide 24.0 mmol/L (21-32); Chloride 102.0 mmol/L (98-107); Creatinine Clr Calc Pharmacy 24.6 ml/min; Globulin 3.6 gm/dl (2.5-4.0); Glucose 114.0 mg/dl (70-99(Fasting)); Potassium 4.4 mmol/L (3.5-5.1); Sodium 137.0 mmol/L (136-145); Total Protein 7.7 gm/dl (6.0-8.3)
[2025-08-04] MEDS: cefTRIAXone SODIUM 1,000 MG/50 ML BAG IV STA (15:22)
[2025-08-04] MEDS: PLASMA-LYTE A 1,000 ML IV ONE (15:22)
[2025-08-04 15:53] LABS: Magnesium 2.4 mg/dl (1.7-2.4)
--- NOTE | 2025-08-04 17:04 | Emergency Department Note ---
Impression & Plan Acute cystitis, Bradycardia, sinus, Atrioventricular block, first degree, BHAVESH (acute kidney injury), Hypovolemia ED Provider Note NAME: ROGELIO WEST AGE: 85 SEX: F : 1940 ARRIVES VIA: Walk-In INFORMANT: Patient, family ED PROVIDER(S): Gopi Arango DO CHIEF COMPLAINT: weakness, UTI symptoms HPI: This is an 85-year-old female with the PMHx of afib on chronic anticoagulation with Apixaban, peripheral vascular disease, valvular heart disease, hypothyroidism and Alzheimer's dementia presenting to [facility] for further evaluation of UTI symptoms. Patient is accompanied by and grandson who provide additional history. The patient is mildly confused and does not provide significant history. She is able to answer review of systems questions. Majority of history is obtained from the patient's and grandson. They report over the course of the last week she has been fatigued and weak. They note that she has had very dark urine that has been malodorous. She does report urinary frequency. Patient notes that she is prone to UTIs and feels like this could be a urinary tract infection. They deny fever or chills. No cough or congestion. Denies chest pain or palpitations. No shortness of breath. They deny abdominal pain, nausea and vomiting No recent changes in bowel movements. Patient denies recent changes in medications or OTC supplements. Patient offers no other complaints, today. ADDITIONAL HISTORY OBTAINED: Per HPI Chronic Medical/Social Conditions Affecting Care: Per HPI PAST MEDICAL HISTORY: See Below PAST SURGICAL HISTORY: See Below FAMILY HISTORY: See Below SOCIAL HISTORY: See Below HOME MEDICATIONS: See Below ALLERGIES: See Below VITALS: See Below PHYSICAL EXAMINATION: GENERAL: Sitting up in bed, alert, well appearing, well nourished, no distress, non-toxic EYE EXAM: normal conjunctiva. OROPHARYNX: no exudate, no erythema, lips, buccal mucosa, and tongue normal and mucous membranes are dry NECK: supple, no nuchal rigidity, no adenopathy, non-tender LUNGS: Clear to auscultation. Normal chest wall mechanics HEART: no murmurs, bradycardic rate, regular rhythm ABDOMEN: abdomen soft, non-tender, no masses, no rebound or guarding. BACK: Back is symmetrical on inspection and there is no deformity, no midline tenderness, no CVA tenderness. SKIN: no rashes and no bruising UPPER EXTREMITIES: upper extremities are grossly normal. LOWER EXTREMITIES: No pitting edema. NEURO EXAM: Normal sensorium, GCS 15, normal speech, no gross weakness of arms, no gross weakness of legs. MEDICAL DECISION MAKING: Differential diagnoses includes but not limited to acute cystitis, pyelonephritis, vaginitis, recurrent UTI, electrolyte derangements, dehydration, symptomatic bradycardia, dysrhythmia, ACS, thyroid disease In summary, this is an 85 year old male who presented with weakness and urinary symptoms. Differential as above. Nursing notes and pertinent past medical records reviewed. Vital signs reviewed and the patient is bradycardic but otherwise afebrile and hemodynamically stable. Upon review of the patient's prior vital signs, the bradycardia does appear to be somewhat new for the patient. Please note that she is on relatively high dose metoprolol as well as amiodarone. These may need to be adjusted. While she is bradycardic I do not feel that the patient is significantly symptomatic but it could be contributing to her symptoms. Appears to be sinus bradycardia with first-degree AV block. I do not feel that further intervention for her bradycardia is necessary at this time but will keep the patient on the monitor. Will investigate for urinary symptoms with UA and basic lab work. Would also consider thyroid disease as the patient is on amiodarone. Physical examination revealed as above. As a result of my initial evaluation, IV access was established and the patient was placed on CCRM. Therapeutics ordered include IVFR. Diagnostics interpreted by me include EKG and cardiac monitoring as listed below: -Cardiac Monitoring: An order was placed for continuous cardiac monitoring. The monitor shows a rate of 30-50s with regular rhythm. -ECG: Sinus bradycardia with first-degree AV block at 40 bpm. Known left bundle branch block present. Intervals are within normal limits otherwise. Patient completed laboratory studies and imaging. Results independently interpreted by me are no leukocytosis or anemia. BHAVESH present without significant electrolyte derangements. Suspect likely prerenal etiology given decreased PO intake and evidence of hypovolemia on physicial exam. Normal TSH. UA shows bacteruria, 3+ leuk esterase and significant pyuria. I favor UTI over contamination at this time. The patient was managed with close monitoring, IVFR and CTX. The patient has been weak and fatigued. She is newly bradycardic which appears to be a sinus bradycardia with first-degree AV block. Patient has an BHAVESH with UTI. Prior cultures have been GBS. Feel like these are likely contaminants. Patient can be on ceftriaxone as an inpatient to cover normal bacteria for UTI. Did discuss discharge versus admission with the patient. She is agreeable to admission. Patient will need to be admitted on telemetry. Ultimately, the decision was made to admit the patient for acute cystitis c/b profound bradycardia and BHAVESH. I discussed the case with the hospitalist service via telephone/Tiger[employer] and they are agreeable to admit the patient to their services. Based on the above, including the patient's age, coexisting illnesses, labs, imaging, and exam findings the decision to treat as an inpatient. I discussed the patient with the hospitalist team who recommended admission to their services. They received the medications, treatments, interventions indicated above and their condition remained guarded. I discussed my findings with the patient and their family and they understand and agree with the treatment plan. All patient / family questions were answered to their satisfaction. Consults/Care Managements Discussions: Per MDM ER treatment provided: See above Procedures:none Critical Care: None The chart was completed utilizing Knowable Speech voice recognition software. Grammatical errors, random word insertions, pronoun errors, and incomplete sentences are an occasional consequence of this system due to software limitations, ambient noise, and hardware issues. Any formal questions or concerns about the content, text, or information contained within the body of this dictation should be directly addressed to the physician for clarification. Past Med/Surg History Problem List (Updated 08/07/25 @ 14:06 by Gopi Arango DO) Hypovolemia (Acute) BHAVESH (acute kidney injury) (Acute) Atrioventricular block, first degree (Acute) Bradycardia, sinus (Acute) Acute cystitis (Acute) Bradycardia UTI (urinary tract infection) Alzheimer's dementia Heart failure with mid-range ejection fraction Metabolic encephalopathy Rheumatic mitral valve disease Dementia Vitamin B12 deficiency Peripheral vascular disease Memory loss On anticoagulant therapy Mitral regurgitation Dyspnea on exertion Decreased exercise tolerance (Acute) Abnormal nuclear stress test (Acute) Abnormal electrocardiogram (Acute) Pectus excavatum Fatigue Vaginal bleeding Urinary symptom or sign Microscopic hematuria Urethral caruncle Atrial flutter Paroxysmal atrial fibrillation On amiodarone therapy Fatigue Hypothyroidism Chest pain Elevated blood pressure reading without diagnosis of hypertension Atrial flutter with rapid ventricular response Medical History Atrial flutter with rapid ventricular response Atrial fibrillation with rapid ventricular response PVT (paroxysmal ventricular tachycardia) Tricuspid regurgitation Non severe per cardio Kyphoscoliosis Sensorineural hearing loss (SNHL) of right ear with restricted hearing of left ear Tinnitus, bilateral Osteoporosis Raynauds phenomenon Shortness of breath CHAPMAN per cardio records- chronic- pt euvolemic at 04/01/21 cardio visit "Likely due to documented pulmonary issues, with kyphoscoliosis and pectus, limiting chest cage expansion." PT REPORTS SOB IN HER HX, NO OTHER KNOWN LUNG PROBLEMS OTHER THAN EMPHYSEMA. SOB USUALLY NOT A PROBLEM OTHER THAN WITH THE CURRENT AFIB RHYTHM...REASON FOR UPCOMING PROCEDURE LBBB (left bundle branch block) Macular degeneration Mitral valve prolapse with MR- remains non severe per cardio records Emphysema lung Degenerative disc disease Hypothyroidism SVT (supraventricular tachycardia) HX SVT Atrial fibrillation DX LONG TIME AGO WITH AFIB/HX CARDIOVERSIONS [place] Eliquis[place] [facility] [place] History History of cardioversion x6, most recent 11/2022, [facility] H/O varicose vein ligation History of total knee replacement LEFT 07/04/13 - MAC #3, ETT #7.0, HiLo Oral, Grade 1 View, Atraumatic DL X 1 History of total hip arthroplasty BILATERAL H/O bladder repair surgery Anterior and posterior colporrhaphy, uterine suspension w/ mesh History of Fanta fundoplication H/O bilateral inguinal hernia repair H/O umbilical hernia repair History of colonoscopy History of cataract surgery BILATERAL Family History Mother Emphysema of lung Osteoporosis Heart disease Father Hearing loss Heart disease Sister Lung cancer Daughter Breast cancer Denies family history of Ovarian cancer No family history of adverse response to anesthesia No family history of bleeding disorder Allergies Colorectal cancer Cancer Hypertension Uterine cancer Stroke Asthma Social History Smoking Status: Never smoker Second Hand Exposure: Yes (hx as child); Do You Dip or Chew Tobacco: No; Hx Alcohol Use: No Hx Substance Use: No Preferred Language: Qatari Communication Ability: Effective Communication Ability Comment: confusion Waistband Setter Lockstitch Required: No Beliefs That Will Affect Care: None marital status: Current Living Situation: Spouse and Family Feels Safe at Home: Yes Assistive Devices: Walker Allergies Allergies Allergy/AdvReac Type Severity Reaction Status Date / Time sesame seed Allergy Severe Anaphylaxis Verified 08/04/25 17:15 Home Meds Home Medications Medication Instructions Recorded Confirmed multivitamin 1 tab PO QAM 01/28/19 08/04/25 acetaminophen 500 mg tablet 1,000 mg PO UD PRN Pain 02/17/20 08/04/25 (Tylenol Extra Strength) levothyroxine 100 mcg tablet 100 mcg PO DAILY 06/12/23 08/04/25 apixaban 2.5 mg tablet (Eliquis) 2.5 mg PO BID 03/11/24 08/04/25 amiodarone 200 mg tablet 200 mg PO DAILY 09/16/24 08/04/25 Previous Rx's Medication Instructions Recorded safety needles 25 gauge x 1" (BD #15 ea 11/02/23 Eclipse) cyanocobalamin (vitamin B-12) 1,000 mcg subcut .COMPLEX 90 days 05/16/25 1,000 mcg/mL injection solution #10 mL memantine 10 mg tablet 10 mg PO BID #180 tabs 05/16/25 amoxicillin 500 mg tablet 500 mg PO Q8H 7 days #21 tabs 08/05/25 Results & Data (ED) Vital Signs Vital Signs - 24 hr 08/04/25 12:30 08/04/25 15:16 08/04/25 15:30 Temperature 36.7 C Temperature Source Temporal Artery Scan Pulse Rate 75 43 L Pulse Rate [Apical] 43 L Respiratory Rate 18 14 Respiratory Effort / Characteristics Non-Labored Spontaneous Spontaneous Respiratory Depth Normal Respiratory Pattern Regular Blood Pressure 105/58 L Blood Pressure [Left Arm] 179/68 H Blood Pressure Mean 73 Blood Pressure Mean [Left Arm] 105 Blood Pressure Position [Left Arm] Sitting Pulse Oximetry 97 Oxygen Delivery Method Room Air Room Air Sepsis Recent Fever Within 48 Hours No Sepsis New/Unexplained Change in Mental Status N/A Sepsis Action Taken by Nursing No Action Required 08/04/25 17:00 Temperature Temperature Source Pulse Rate Pulse Rate [Apical] 43 L Respiratory Rate 15 Respiratory Effort / Characteristics Spontaneous Respiratory Depth Normal Respiratory Pattern Blood Pressure Blood Pressure [Left Arm] 177/73 H Blood Pressure Mean Blood Pressure Mean [Left Arm] 107 Blood Pressure Position [Left Arm] Pulse Oximetry 94 Oxygen Delivery Method Room Air Sepsis Recent Fever Within 48 Hours Sepsis New/Unexplained Change in Mental Status Sepsis Action Taken by Nursing Laboratory Data 08/05/25 09:28 08/05/25 09:28 Lab Results 08/04/25 08/04/25 Range/Units 13:37 13:46 WBC 9.16 (4.8-10.8) K/ul RBC 4.49 (4.20-5.40) M/uL Hgb 14.8 (12.0-16.0) g/dL Hct 44.8 (37.0-47.0) % MCV 99.8 (80.0-100.0) fL MCH 33.0 (25.0-34.0) pg MCHC 33.0 (32.0-36.0) g/dL RDW Std Deviation 50.6 H (36.4-46.3) fL RDW Coeff of Amy 13.8 (11.5-14.5) % Plt Count 260 (130-400) K/uL MPV 9.8 (9.4-12.4) fL Immature Gran % (Auto) 0.7 % Neut % (Auto) 71.5 % Lymph % (Auto) 20.4 % Carroll % (Auto) 6.1 % Eos % (Auto) 0.8 % Baso % (Auto) 0.5 % Neut # (Auto) 6.55 H (1.40-6.50) K/uL Lymph # (Auto) 1.87 (1.20-3.40) K/uL Carroll # (Auto) 0.56 (0.11-0.59) K/uL Eos # (Auto) 0.07 (0.00-0.50) K/uL Baso # (Auto) 0.05 (0.00-0.20) K/uL Immature Gran # (Auto) 0.06 (0.01-0.20) K/uL Sodium 137 (136-145) mmol/L Potassium 4.4 (3.5-5.1) mmol/L Chloride 102 (98-107) mmol/L Carbon Dioxide 24 (21-32) mmol/L Anion Gap 11 (3-11) BUN 32 H (6-23) mg/dl Creatinine 1.46 H (0.6-1.2) mg/dl Est Cr Clr Drug Dosing 24.6 ml/min eGFR 35.28 BUN/Creatinine Ratio 21.9 H (10-20) Glucose 114 H (70-99(Fasting)) mg/dl Calcium 9.5 (8.6-10.3) mg/dl Magnesium 2.4 (1.7-2.4) mg/dl Total Bilirubin 0.9 (0.2-1.0) mg/dl AST 24 (13-39) U/L ALT 16 (7-52) U/L Alkaline Phosphatase 86 (34-104) U/L Troponin I High Sens 10.4 (0-14) pg/ml Total Protein 7.7 (6.0-8.3) gm/dl Albumin 4.1 (3.4-5.0) gm/dl Globulin 3.6 (2.5-4.0) gm/dl Albumin/Globulin Ratio 1.1 (0.9-2) TSH 2.795 (0.300-4.500) uIu/ml Urine Color Yellow Urine Appearance Turbid A (Clear) Urine pH 8.0 H (4.5-7.5) Ur Specific [place] 1.014 (1.000-1.030) Urine Protein 3+ H (Negative) Urine Glucose (UA) Negative (Negative) Urine Ketones Trace H (Negative) Urine Blood 1+ H (Negative) Urine Nitrite Negative (Negative) Urine Bilirubin Negative (Negative) Urine Urobilinogen Negative (Negative) Ur Leukocyte Esterase 3+ H (Negative) Urine WBC (Auto) >50 H (0-5) /hpf Urine RBC (Auto) 11-20 H (0-2) /hpf U Hyaline Cast (Auto) 3-5 H (0-2) /lpf U Epithel Cells (Auto) 3-5 H (0-2) /hpf Urine Bacteria (Auto) 4+ H (None Seen) Urine Comment Administered Medications Discontinued Medications Amiodarone HCl (Amiodarone 200 Mg Tab) 200 mg PO DAILY JOSE JUAN Stop: 09/04/25 08:59 Last Admin: 08/05/25 08:33 Dose: 200 mg Documented By: MEGAN Apixaban (Apixaban 2.5 Mg Tab) 2.5 mg PO BID JOSE JUAN Stop: 09/03/25 20:59 Last Admin: 08/05/25 08:34 Dose: 2.5 mg Documented By: Admin: 08/04/25 21:31 Dose: 2.5 mg Documented By: YAMIL Parenteral Electrolytes (Plasma-Lyte A Ph 7.4) 1,000 mls @ 999 mls/hr IV .Q1H1M ONE Stop: 08/04/25 16:15 Last Infusion: 08/04/25 17:48 Dose: Infused Documented By: Admin: 08/04/25 15:22 Dose: 999 mls/hr Documented By: anish Ceftriaxone Sodium (Rocephin) 1,000 mg in 50 mls @ 100 mls/hr IV NOW STA Stop: 08/04/25 15:44 Last Infusion: 08/04/25 15:56 Dose: Infused Documented By: anish Admin: 08/04/25 15:22 Dose: 100 mls/hr Documented By: anish Ceftriaxone Sodium (Rocephin) 1,000 mg in 50 mls @ 100 mls/hr IV Q24H JOSE JUAN Stop: 08/10/25 12:59 Last Infusion: 08/05/25 13:12 Dose: Infused Documented By: Admin: 08/05/25 12:42 Dose: 100 mls/hr Documented By: MEGAN Levothyroxine Sodium (Levothyroxine Sodium 100 Mcg Tablet) 100 mcg PO DAILYBB [facility] Stop: 09/04/25 06:29 Last Admin: 08/05/25 06:27 Dose: 100 mcg Documented By: YAMIL Memantine (Memantine Hcl 10 Mg Tab) 10 mg PO BID JOSE JUAN Stop: 09/03/25 20:59 Last Admin: 08/05/25 08:33 Dose: 10 mg Documented By: Admin: 08/04/25 21:31 Dose: 10 mg Documented By: YAMIL Multivitamins (Multivitamin Tab) 1 tab PO QAM JOSE JUAN Stop: 09/04/25 08:59 Last Admin: 08/05/25 08:33 Dose: 1 tab Documented By: MEGAN Discharge Plan Visit Data Chief Complaint: Urinary Symptoms Stated Complaint: SUSPECTED UTI LOWTEMP ED Provider: Gopi Arango Discharge Problem: Acute cystitis, Bradycardia, sinus, Atrioventricular block, first degree, BHAVESH (acute kidney injury), Hypovolemia Patient Disposition: Admitted As Inpatient Condition: Fair Discharge Instructions Interventions: ED Discharge Assessment Last Done: 08/04/25 20:30
[2025-08-04 17:38] LABS: Thyroid Stimulating Hormone 2.795 uIu/ml (0.300-4.500)
--- NOTE | 2025-08-04 18:09 | History & Physical Report ---
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 Afebrile. Ambulating with a walker at her baseline. No back or suprapubic pain. In the ER she was noted to be significantly bradycardic in normal sinus rhythm. She has paroxysmal atrial flutter/fibrillation required multiple cardioversions before in the past and currently maintained on amiodarone for rhythm control in addition to metoprolol. 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 Allergies Allergy/AdvReac Type Severity Reaction Status Date / Time sesame seed Allergy Severe Anaphylaxis Verified 08/04/25 17:15 Home Medications Medication Instructions Recorded Confirmed Type multivitamin 1 tab PO QAM 01/28/19 08/04/25 History acetaminophen 500 mg tablet 1,000 mg PO UD PRN Pain 02/17/20 08/04/25 History (Tylenol Extra Strength) levothyroxine 100 mcg tablet 100 mcg PO DAILY 06/12/23 08/04/25 History safety needles 25 gauge x 1" (BD #15 ea 11/02/23 08/01/24 Rx Eclipse) apixaban 2.5 mg tablet (Eliquis) 2.5 mg PO BID 03/11/24 08/04/25 History amiodarone 200 mg tablet 200 mg PO DAILY 09/16/24 08/04/25 History cyanocobalamin (vitamin B-12) 1,000 mcg subcut .COMPLEX 90 days 05/16/25 08/04/25 Rx 1,000 mcg/mL injection solution #10 mL memantine 10 mg tablet 10 mg PO BID #180 tabs 05/16/25 08/04/25 Rx metoprolol succinate 100 mg 50 mg PO BID 05/16/25 08/04/25 History tablet,extended release 24 hr (Toprol XL) furosemide 20 mg tablet 20 mg PO QPM 08/04/25 08/04/25 History Past Med/Surg History Problem List (Updated 08/04/25 @ 19:29 by Kota Barrera MD) UTI (urinary tract infection) Alzheimer's dementia Heart failure with mid-range ejection fraction Metabolic encephalopathy Rheumatic mitral valve disease Dementia Vitamin B12 deficiency Peripheral vascular disease Memory loss On anticoagulant therapy Mitral regurgitation Dyspnea on exertion Decreased exercise tolerance (Acute) Abnormal nuclear stress test (Acute) Abnormal electrocardiogram (Acute) Pectus excavatum Fatigue Vaginal bleeding Urinary symptom or sign Microscopic hematuria Urethral caruncle Atrial flutter Paroxysmal atrial fibrillation On amiodarone therapy Fatigue Hypothyroidism Chest pain Elevated blood pressure reading without diagnosis of hypertension Atrial flutter with rapid ventricular response Medical History PVT (paroxysmal ventricular tachycardia) Tricuspid regurgitation Kyphoscoliosis Sensorineural hearing loss (SNHL) of right ear with restricted hearing of left ear Tinnitus, bilateral Osteoporosis Raynauds phenomenon Shortness of breath LBBB (left bundle branch block) Macular degeneration Mitral valve prolapse Emphysema lung Degenerative disc disease Hypothyroidism SVT (supraventricular tachycardia) Atrial fibrillation Surgical History History of cardioversion H/O varicose vein ligation History of total knee replacement History of total hip arthroplasty H/O bladder repair surgery History of Fanta fundoplication H/O bilateral inguinal hernia repair H/O umbilical hernia repair History of colonoscopy History of cataract surgery Family History Mother Emphysema of lung Osteoporosis Heart disease Father Hearing loss Heart disease Sister Lung cancer Daughter Breast cancer Denies family history of Ovarian cancer No family history of adverse response to anesthesia No family history of bleeding disorder Allergies Colorectal cancer Cancer Hypertension Uterine cancer Stroke Asthma Social History Smoking Status: Never smoker Second Hand Exposure: Yes (hx as child); Do You Dip or Chew Tobacco: No; Hx Alcohol Use: No Hx Substance Use: No Preferred Language: Rwandan Communication Ability: Effective Communication Ability Comment: confusion Real Estate Processor Required: No Beliefs That Will Affect Care: None marital status: Current Living Situation: Spouse and Family Feels Safe at Home: Yes Assistive Devices: Glasses and Walker Review of Systems Review of Systems: All systems reviewed & are unremarkable except as noted in HPI & below Physical Exam Constitutional: WD/WN, vitals as above ENMT: Mouth: oral mucous membranes not dry Respiratory: normal respiratory effort, lungs clear to auscultation Cardiovascular: Rate/Rhythm: regular rhythm and + bradycardic Heart Sounds: + murmur (systolic apical) Extremities: normal capillary refill; no calf tenderness and no pedal edema Gastrointestinal (Abdomen): normal bowel sounds, soft, nontender, no hepatosplenomegaly Skin: venous stasis changes Psychiatric: A+Ox3, euthymic affect Genitourinary: no CVA tenderness Results & Data Results & Data Vital Signs (Past 12 Hours) Vital Signs Temp Pulse Pulse Resp BP BP Pulse Ox 08/04/25 17:00 43 L 15 177/73 H 94 08/04/25 15:30 43 L 08/04/25 15:16 43 L 14 179/68 H 08/04/25 12:30 36.7 C 75 18 105/58 L 97 O2 Del Method 08/04/25 17:00 Room Air 08/04/25 15:30 08/04/25 15:16 Room Air 08/04/25 12:30 Room Air Laboratory Results Abnormal lab results 08/04/25 08/04/25 Range/Units 13:37 13:46 RDW Std Deviation 50.6 H (36.4-46.3) fL Neut # (Auto) 6.55 H (1.40-6.50) K/uL BUN 32 H (6-23) mg/dl Creatinine 1.46 H (0.6-1.2) mg/dl BUN/Creatinine Ratio 21.9 H (10-20) Glucose 114 H (70-99(Fasting)) mg/dl Urine Appearance Turbid A (Clear) Urine pH 8.0 H (4.5-7.5) Urine Protein 3+ H (Negative) Urine Ketones Trace H (Negative) Urine Blood 1+ H (Negative) Ur Leukocyte Esterase 3+ H (Negative) Urine WBC (Auto) >50 H (0-5) /hpf Urine RBC (Auto) 11-20 H (0-2) /hpf U Hyaline Cast (Auto) 3-5 H (0-2) /lpf U Epithel Cells (Auto) 3-5 H (0-2) /hpf Urine Bacteria (Auto) 4+ H (None Seen) Medications Administered ER Medications Given: Plasma-Lyte 1000ml bolus Ceftriaxone 1000mg IV daily ECG Rate (beats per minute): 40 Rhythm: sinus bradycardia Findings: + other (premature supraventricular complexes) Comparison ECG Date: from (July 21, 2024) Change: the following changes noted (atrial flutter converted to NSR) Code Status & VTE Plan Code Status Full VTE Prophylaxis Plan VTE Prophylaxis will be ordered: Yes PG Care Time/CCT Total # of Minutes Spent Total Time Spent with Patient: Total time spent is greater than 50% in coordination of care (as documented) at patient's floor/unit and/or counseling patient: Coding Level of Care Code 13195 INT INP/OBS CARE 3/75MIN Diagnoses Alzheimer's dementia G30.9; F02.80 Heart failure with mid-range ejection fraction I50.22 Hypothyroidism E03.9 On amiodarone therapy Z79.899 Paroxysmal atrial fibrillation I48.0 UTI (urinary tract infection) N39.0
--- NOTE | 2025-08-04 19:55 | XRay Report ---
Chest radiograph, one view History: Chest pain Comparison: 07/17/2024 Findings: Single AP view of the chest performed. No focal consolidation or pleural effusion. No pneumothorax. The cardiomediastinal silhouette is within normal limits. Normal pulmonary vascularity. No evidence for lymphadenopathy. No visualized bony or soft tissue abnormality. Impression: Normal chest radiograph Electronically signed by Joaquin Whitney 08-04-2025 7:54 PM
[2025-08-04] MEDS: APIXABAN 2.5 MG TAB PO SCH (21:31)
[2025-08-04] MEDS: MEMANTINE HCL 10 MG TAB PO SCH (21:31)
--- NOTE | 2025-08-05 06:14 | Electrocardiogram Report ---
Test Reason : Blood Pressure : */* mmHG Vent. Rate : 40 BPM Atrial Rate : 40 BPM P-R Int : 332 ms QRS Dur : 146 ms QT Int : 632 ms P-R-T Axes : 90 -68 106 degrees QTcB Int : 515 ms Marked sinus bradycardia with 1st degree A-V block with Premature supraventricular complexes Left axis deviation Left bundle branch block Abnormal ECG When compared with ECG of 21-Jul-2024 05:07, Sinus bradycardia has replaced Atrial fibrillation QRS duration has increased Confirmed by Mich Espino ([id number]) on 08/05/2025 6:13:55 AM Referred By: Confirmed By: Mich Espino
[2025-08-05] MEDS: LEVOTHYROXINE SODIUM 100 MCG TABLET PO SCH (06:27)
[2025-08-05] MEDS ORDERED: ACETAMINOPHEN 325 MG TAB PO PRN (07:49)
[2025-08-05 07:57] VITALS: RESP 17
[2025-08-05] MEDS: MULTIVITAMIN TAB PO SCH (08:33)
[2025-08-05] MEDS: AMIODARONE 200 MG TAB PO SCH (08:33)
--- NOTE | 2025-08-05 08:59 | Cardiology Consultation ---
Date of Consultation August 05, 2025 Assessment & Plan (1) Bradycardia: (2) Paroxysmal atrial fibrillation: Plan Ms. Clark appears comfortable and is not having symptoms with her lower heart rates. She should continue on amiodarone. Her metoprolol can be held. She has mild QTc prolongation on EKG which is similar to previous. She is anticoagulated for stroke prevention. Her troponin was normal and she is not having any anginal symtpoms. She appears dry on her labs and is not having any overt heart failure symptoms. She is not congested on her chest Xray. Her furosemide has been held for now. Her last echo in May showed normal EF 60-65%. History of Present Illness Attending Physician: Kota Barrera MD History of Present Illness Ms. Clark presented to the ED yesterday for acute UTI. She was noted to be bradycardic. Today she is up to the side of the bed eating breakfast. She denies any dizziness and nursing has not noted her to appear lightheaded when she has been out of bed. No shortness of breath or chest pain. No edema. She feels like her usual self today. She has been sinus eduardo on the monitor with heart rates in the 40s and 50s. Allergies Allergy/AdvReac Type Severity Reaction Status Date / Time sesame seed Allergy Severe Anaphylaxis Verified 08/04/25 17:15 Home Medications Medication Instructions Recorded Confirmed Type multivitamin 1 tab PO QAM 01/28/19 08/04/25 History acetaminophen 500 mg tablet 1,000 mg PO UD PRN Pain 02/17/20 08/04/25 History (Tylenol Extra Strength) levothyroxine 100 mcg tablet 100 mcg PO DAILY 06/12/23 08/04/25 History safety needles 25 gauge x 1" (BD #15 ea 11/02/23 08/01/24 Rx Eclipse) apixaban 2.5 mg tablet (Eliquis) 2.5 mg PO BID 03/11/24 08/04/25 History amiodarone 200 mg tablet 200 mg PO DAILY 09/16/24 08/04/25 History cyanocobalamin (vitamin B-12) 1,000 mcg subcut .COMPLEX 90 days 05/16/25 08/04/25 Rx 1,000 mcg/mL injection solution #10 mL memantine 10 mg tablet 10 mg PO BID #180 tabs 05/16/25 08/04/25 Rx metoprolol succinate 100 mg 50 mg PO BID 05/16/25 08/04/25 History tablet,extended release 24 hr (Toprol XL) furosemide 20 mg tablet 20 mg PO QPM 08/04/25 08/04/25 History Patient History Medical History Atrial flutter with rapid ventricular response Atrial fibrillation with rapid ventricular response PVT (paroxysmal ventricular tachycardia) Tricuspid regurgitation Non severe per cardio Kyphoscoliosis Sensorineural hearing loss (SNHL) of right ear with restricted hearing of left ear Tinnitus, bilateral Osteoporosis Raynauds phenomenon Shortness of breath CHAPMAN per cardio records- chronic- pt euvolemic at 04/01/21 cardio visit "Likely due to documented pulmonary issues, with kyphoscoliosis and pectus, limiting chest cage expansion." PT REPORTS SOB IN HER HX, NO OTHER KNOWN LUNG PROBLEMS OTHER THAN EMPHYSEMA. SOB USUALLY NOT A PROBLEM OTHER THAN WITH THE CURRENT AFIB RHYTHM...REASON FOR UPCOMING PROCEDURE LBBB (left bundle branch block) Macular degeneration Mitral valve prolapse with MR- remains non severe per cardio records Emphysema lung Degenerative disc disease Hypothyroidism SVT (supraventricular tachycardia) HX SVT Atrial fibrillation DX LONG TIME AGO WITH AFIB/HX CARDIOVERSIONS on Eliquis; [facility] [place] cardio Surgical History History of cardioversion x6, most recent 11/2022, [facility] H/O varicose vein ligation History of total knee replacement LEFT 07/04/13 - MAC #3, ETT #7.0, HiLo Oral, Grade 1 View, Atraumatic DL X 1 History of total hip arthroplasty BILATERAL H/O bladder repair surgery Anterior and posterior colporrhaphy, uterine suspension w/ mesh History of Fanta fundoplication H/O bilateral inguinal hernia repair H/O umbilical hernia repair History of colonoscopy History of cataract surgery BILATERAL Family History Mother Emphysema of lung Osteoporosis Heart disease Father Hearing loss Heart disease Sister Lung cancer Daughter Breast cancer Denies family history of Ovarian cancer No family history of adverse response to anesthesia No family history of bleeding disorder Allergies Colorectal cancer Cancer Hypertension Uterine cancer Stroke Asthma Social History Smoking Status: Never smoker Second Hand Exposure: Yes (hx as child); Do You Dip or Chew Tobacco: No; Hx Alcohol Use: No Hx Substance Use: No Preferred Language: Martiniquais Communication Ability: Effective Communication Ability Comment: confusion Design/Animation Instructor Required: No Beliefs That Will Affect Care: None marital status: Current Living Situation: Spouse and Family Feels Safe at Home: Yes Assistive Devices: Glasses and Walker Review of Systems Review of Systems: All systems reviewed & are unremarkable except as noted in HPI & below Physical Exam Constitutional: WD/WN, vitals as above Respiratory: normal respiratory effort, lungs clear to auscultation Cardiovascular: Rate/Rhythm: regular rate and regular rhythm Heart Sounds: + murmur (llsb 2/6 holosystolic murmur) Extremities: no edema Skin: no rashes, warm and dry Neurologic: moves all extremities and awake Results & Data Vital Signs (Past 12 Hours) Vital Signs Temp Pulse Pulse Resp BP BP Pulse Ox 08/05/25 07:54 36.7 C 93 H 17 117/65 92 08/05/25 02:20 36.9 C 51 L 16 130/76 92 08/04/25 22:41 36.5 C 40 L 16 123/67 94 08/04/25 22:29 39 L O2 Del Method 08/05/25 07:54 Room Air 08/05/25 02:20 Room Air 08/04/25 22:41 Room Air 08/04/25 22:29
[2025-08-05 09:55] LABS: Hematocrit (blood only) 38.6 % (37.0-47.0); Hemoglobin 12.7 g/dL (12.0-16.0); Immature Granulocytes # (auto) 0.05 K/uL (0.01-0.20); Immature Granulocytes % (auto) 0.7 %; Mean Corpuscular Hemoglobin 32.6 pg (25.0-34.0); Mean Corpuscular Volume 99.2 fL (80.0-100.0); Platelet Count 223 K/uL (130-400); RDW Standard Deviation 49.5 fL (36.4-46.3); Red Blood Count 3.89 M/uL (4.20-5.40); White Blood Count 7.02 K/ul (4.8-10.8)
[2025-08-05 10:19] LABS: Anion Gap 8.0 (3-11); Blood Urea Nitrogen 29.0 mg/dl (6-23); Calcium 9.0 mg/dl (8.6-10.3); Carbon Dioxide 25.0 mmol/L (21-32); Chloride 106.0 mmol/L (98-107); Creatinine Clr Calc Pharmacy 31.9 ml/min; Glucose 143.0 mg/dl (70-99(Fasting)); Potassium 3.8 mmol/L (3.5-5.1); Sodium 139.0 mmol/L (136-145)
[2025-08-05 10:53] VITALS: PULSE 46; TEMP 97.5; O2SAT 93
[2025-08-05] MEDS: cefTRIAXone SODIUM 1,000 MG/50 ML BAG IV SCH (12:42)
[2025-08-05] MEDS ORDERED: AMOXICILLIN 500 MG CAP PO SCH (13:10)
--- NOTE | 2025-08-05 13:16 | Discharge Summary ---
Discharge Summary Date of Service August 05, 2025 Principal Dx & Hospital Course #1 = Principal Diagnosis (1) Alzheimer's dementia: (2) Heart failure with mid-range ejection fraction: (3) Hypothyroidism: (4) On amiodarone therapy: (5) Paroxysmal atrial fibrillation: (6) UTI (urinary tract infection): Plan Alayna Clark is an 85 year old female admitted to [facility] from August 04 - 2024 due to fatigue and strong odor urine. She was diagnosed with dehydration, low heart rate and UTI. This was treated with intravenous fluids, stopping furosemide and metoprolol. Ceftriaxone was given for urine tract infection. Subsequent urine culture grew enterococcus faecalis. This will be treated with amoxicillin on discharge. Sensitivities of this culture are pending on discharge - she will be called if it is resistant to amoxicillin. Notes For Next Care Provider Routine follow up Medication Changes From Visit Metoprolol stopped due to bradycardia in NSR Furosemide stopped due to dehydration Amoxicillin started for UTI as above Admission HPI Per Admitting Provider Alayna Clark is an 85 year old female with dementia who presents to the ER with strong urine odor, dark urine and lethargy for the last week. Afebrile. Ambu lating with a walker at her baseline. No back or suprapubic pain. In the ER she was noted to be significantly bradycardic in normal sinus rhythm. She has paroxysmal atrial flutter/fibrillation required multiple cardioversions before in the past and currently maintained on amiodarone for rhythm control in addition to metoprolol. 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 Discharge Exam Respiratory normal respiratory effort, lungs clear to auscultation Cardiovascular Rate/Rhythm: regular rhythm and + bradycardic Gastrointestinal (Abdomen) normal bowel sounds, soft, nontender, no hepatosplenomegaly Genitourinary no CVA tenderness Discharge Plan Discharge Items Patient Disposition: Home - Self-Care Reason For Visit: BHAVESH, BRADYCARDIA, UTI Discharge Diagnosis: Acute kidney injury (dehydration) Bradycardia (low heart rate) Urine tract infection Condition on Discharge: Fair Activity: Resume your previous activity Non-emergency contact: Primary Care Provider Call non-emergency contact if: you have any medication questions and your symptoms worsen Follow-up/Referrals: Joaquin Jordan MD [Primary Care Provider] - 08/11/25 10:00 am (08/11/25 at 10:[address] Folr Arrival time 9:45) Diet: Regular Addtl Attending Provider Instructions: You were admitted to [facility] from August 04 - 2024 due to fatigue and strong odor urine. You were diagnosed with dehydration, low heart rate and UTI. This was treated with intravenous fluids, stopping furosemide and metoprolol. Ceftriaxone (antibiotic) was given for urine tract i nfection. Subsequent urine culture grew enterococcus faecalis. This will be treated with amoxicillin on discharge. Sensitivities of this culture are pending on discharge - you will be called if it is resistant to amoxicillin. Pending Studies at Discharge: Yes (Urine culture) Stand-Alone Forms: My [facility], Smoking Cessation Medications and DC Order Prescriptions: Continued levothyroxine 100 mcg tablet 100 mcg PO DAILY (DME) BD Eclipse 25 gauge x 1" needle See Rx Instructions .Route Qty: 15 0RF Rx Instructions: As directed cyanocobalamin (vitamin B-12) 1,000 mcg/mL solution 1,000 mcg subcut .COMPLEX 90 Days Qty: 10 3RF Rx Instructions: Inject 1 mL IM once monthly. memantine 10 mg tablet 10 mg PO BID Qty: 180 3RF amiodarone 200 mg tablet 200 mg PO DAILY Eliquis 2.5 mg tablet 2.5 mg PO BID multivitamin Tablet 1 tab PO QAM acetaminophen [Tylenol Extra Strength] 500 mg tablet 1,000 mg PO UD PRN (Reason: Pain) Discontinued metoprolol succinate [Toprol XL] 100 mg tablet extended release 24 hr 50 mg PO BID furosemide 20 mg tablet 20 mg PO QPM Discharge Orders: Discharge Order (Routine); Ordered 08/05/25 Ordered By: Kota Barrera Admission Data Admit Date/Time: 08/04/25 17:58 Attending Provider: Kota Barrera Admit Provider: Kota Barrera Primary Care Provider: Joaquin Jordan Other Providers: Kota Barrera; Danii Mancuso Other Interventions: Discharge Summary Assessment (RN) Last Done: 08/05/25 13:27 Hospital Stay Data Consultations 08/04/25 17:39 ED Decision to Admit Stat 08/04/25 20:56 Consult Cardiology Routine Pending Results Patient Have Any Pending Studies at Discharge: Yes (Urine culture) Discharge Instructions Given to Patient (Per Discharging Provider) You were admitted to [facility] from August 04 - 2024 due to fatigue and strong odor urine. You were diagnosed with dehydration, low heart rate and UTI. This was treated with intravenous fluids, stopping furosemide and metoprolol. Ceftriaxone (antibiotic) was given for urine tract infection. Subsequent urine culture grew enterococcus faecalis. This will be treated with amoxicillin on discharge. Sensitivities of this culture are pending on discharge - you will be called if it is resistant to amoxicillin. Total Time Total Time Spent Total Time Spent (In Minutes): 35 Coding Level of Care Code 32459 INP/OBS DISCH >30 MIN Diagnoses Alzheimer's dementia G30.9; F02.80 Heart failure with mid-range ejection fraction I50.22 Hypothyroidism E03.9 On amiodarone therapy Z79.899 Paroxysmal atrial fibrillation I48.0 UTI (urinary tract infection) N39.0
[2025-08-05 13:29] VITALS: BP 117/65
[2025-08-05] MEDS ORDERED: cefTRIAXone SODIUM 1,000 MG/50 ML BAG IV SCH (15:00)
== END 2025-08-05 14:18 | disposition home or self-care (01) | DRG 690 ==
LOC: SUATTDRO → ED 12:18 → INTOOBSV 17:58 → 4W 17:58